=== PATIENT | female | born 1975 | race Caucasian/White ===

== ENCOUNTER 2020-10-22 12:44 | Outpatient (REF) | payer OTHER, SELFPAY | END 2020-10-22 12:45 | disposition home or self-care (01) | LOC: HO.HMGCLDS 12:44 | PROVIDERS: PCP Internal Medicine; Visit Provider Internal Medicine | DX: Z20.828 Contact with and (suspected) exposure to other viral communicable diseases (principal) | CPT/HCPCS: C9803; U0003 ==

== ENCOUNTER 2021-02-20 08:47 | Outpatient (REF) | payer OTHER, SELFPAY ==
--- NOTE | ~2021-02-20 | XR_ITS ---
EXAMINATION: LUMBAR SPINE AND LEFT HIP X-RAY CLINICAL INFORMATION: Pain COMPARISON: None TECHNIQUE: 3 views of the lumbar spine and 2 views of the left hip FINDINGS: Lumbar spine: Bone alignment is normal. No fracture or dislocation is seen. There is degenerative disc disease at L5-S1. There is lower lumbar spine facet arthritis. Left hip: Bone alignment is normal. No fracture or dislocation is seen. The joint space is normal. Soft tissues are normal. XR/XR lumbar spine 2-3V IMPRESSION: Lumbar spine: Degenerative disc disease at L5-S1 and lower lumbar spine facet arthritis. Left hip: Unremarkable exam.
--- NOTE | ~2021-02-20 | XR_ITS ---
EXAMINATION: LUMBAR SPINE AND LEFT HIP X-RAY CLINICAL INFORMATION: Pain COMPARISON: None TECHNIQUE: 3 views of the lumbar spine and 2 views of the left hip FINDINGS: Lumbar spine: Bone alignment is normal. No fracture or dislocation is seen. There is degenerative disc disease at L5-S1. There is lower lumbar spine facet arthritis. Left hip: Bone alignment is normal. No fracture or dislocation is seen. The joint space is normal. Soft tissues are normal. XR/XR hip LT w PEL1V IMPRESSION: Lumbar spine: Degenerative disc disease at L5-S1 and lower lumbar spine facet arthritis. Left hip: Unremarkable exam.
== END 2021-02-20 08:48 | disposition home or self-care (01) ==
LOC: HO.HMGCX 08:47
PROVIDERS: PCP Internal Medicine; Visit Provider Nurse Practitioner Family
DX: M54.5 Low back pain (principal); M25.552 Pain in left hip; Z91.81 History of falling; Z98.890 Other specified postprocedural states
CPT/HCPCS: 72100; 73502

== ENCOUNTER 2021-07-21 15:00 | Outpatient (REF) | payer OTHER, SELFPAY ==
[2021-07-21 17:01] LABS: Blood Urea Nitrogen 11 mg/dL (9-16); Estimated Glomerular Filt Rate > 60
== END 2021-07-21 15:01 | disposition home or self-care (01) ==
LOC: HO.HMGCLDS 15:00
PROVIDERS: PCP Internal Medicine; Visit Provider Internal Medicine
DX: M54.16 Radiculopathy, lumbar region (principal); Z98.890 Other specified postprocedural states
CPT/HCPCS: 36415; 82565; 84520

== ENCOUNTER 2021-10-27 11:26 | Emergency (ER) | payer OTHER, SELFPAY ==
--- NOTE | ~2021-10-27 | CT_ITS ---
EXAMINATION: CT ABDOMEN AND PELVIS WITHOUT CONTRAST CLINICAL INFORMATION: Left-sided flank pain COMPARISON: None TECHNIQUE: Multidetector volumetric imaging was performed from the superior aspect of the liver through the pubic symphysis. Sagittal and coronal reformatted images were obtained on the technologist's workstation. This CT examination was performed using dose optimization techniques as appropriate, variously including the following: *Automated exposure control *Adjustment of mA and/or kV according to patient size (this includes techniques or standardized protocols for targeted exams where dose is matched to indication/reason for exam; i.e. extremities or head) *Use of iterative reconstruction technique DLP: 763 mGy-cm FINDINGS: LUNG BASES: The lung bases are clear. There is focal 4 mm posterior pleural thickening right lung base. LIVER, GALLBLADDER, AND BILIARY TREE: The liver is normal in size, shape, and attenuation. No focal hepatic lesion or biliary ductal dilatation is present. The gallbladder is unremarkable with no evidence of radiopaque gallstones, gallbladder wall thickening, or obvious pericholecystic inflammatory changes. PANCREAS: Unremarkable. SPLEEN: Unremarkable. ADRENAL GLANDS: Unremarkable. KIDNEYS AND URETERS: The kidneys are normal in size, shape, and attenuation. No perinephric stranding. There is a 2 mm radiopaque calculi left proximal ureter with mild hydronephrosis. No additional renal calculi seen. BLADDER: Unremarkable. GASTROINTESTINAL TRACT: There is scattered stool and gas seen in the colon without distention. The small bowel loops are normal caliber. Appendix is normal caliber. Stomach is nondistended. ABDOMINAL WALL: There is small umbilical hernia containing fat. LYMPH NODES: Normal. VASCULAR: Unremarkable. PELVIC VISCERA: The uterus is anteverted and appears unremarkable. No free fluid. OSSEOUS STRUCTURES: There are degenerative disc changes with vacuum disc phenomena and ventral and posterior spondylosis. No lytic or sclerotic process seen. CT/CT abdomen pelvis wo con IMPRESSION: Tumor radiopaque calculi left proximal ureter with mild hydronephrosis. Small umbilical hernia containing fat. Fleischner guidelines were followed.
[2021-10-27 11:34] VITALS: BP 183/85; PULSE 86; RESP 18; TEMP 36.3; O2SAT 98; BMI 30.7
[2021-10-27 11:51] LABS: MANUAL DIFF FLAG NO
[2021-10-27 11:54] LABS: Basophils Percent Auto 0.1 % (0-2); Eosinophils Absolute Auto 0.1 X10*3/uL (0.0-0.4); Eosinophils Percent Auto 1.2 % (0-4); Hematocrit 44.1 % (37.0-47.0); Hemoglobin 14.2 g/dl (12.0-16.0); Imm Gran Abs Auto 0.06 X10*3/uL (0.00-0.03); Imm Gran Pct Auto 0.6 % (0.0-0.4); Lymphocytes Absolute Auto 1.5 X10*3/uL (1.2-4.9); Lymphocytes Percent Auto 14.5 % (20-40); Mean Corpuscular HGB Conc 32.2 g/dl (31.0-35.0); Mean Corpuscular Hemoglobin 30.3 pg (27.0-33.0); Mean Platelet Volume 10.2 fL (9.4-12.3); Monocytes Absolute Auto 0.7 X10*3/uL (0.1-1.2); Monocytes Percent Auto 6.5 % (2-11); Neutrophils Absolute Auto 8.2 x10*3/uL (2.0-8.3); Neutrophils Percent Auto 77.1 % (45-73); Platelet Count 284 X10*3/uL (160-400); Red Blood Count 4.69 X10*6/uL (4.20-5.50); Red Cell Distribution Width 13.2 % (11.0-16.0); White Blood Count 10.6 X10*3/uL (4.8-10.8)
[2021-10-27 12:10] LABS: Appearance Urine HAZY; Color Urine YELLOW; Glucose Urine UA NEG (NEG); Leukocyte Esterase Urine NEG (NEG); Nitrite Urine NEG (NEG); PH 5.5 (5.0-8.0); Specific Gravity - Urine >= 1.030 (1.005-1.025); UACC Culture Trigger NO; Urine Blood 3+ (NEG); Urine Ketones NEG (NEG); Urine Protein 1+ MG/DL (NEG-TRACE)
[2021-10-27 12:11] LABS: UPreg QC Valid YES; Urine Pregnancy NEGATIVE (NEGATIVE)
[2021-10-27 12:14] LABS: Alanine Aminotransferase 9 U/L (0-31); Alkaline Phosphatase 71 U/L (39-117); Anion Gap 10 (12-20); Aspartate Amino Transferase 11 U/L (5-31); Bilirubin Total 0.4 mg/dL (0.0-1.0); Blood Urea Nitrogen 13 mg/dL (9-16); Calcium 9.6 mg/dL (8.4-10.2); Carbon Dioxide 26 mmol/L (22-29); Chloride 108 mmol/L (96-108); Creatinine Clr Calc Pharmacy 108.3; Estimated Glomerular Filt Rate > 60; Glucose Random 107 mg/dL (60-115); Lipase 20 U/L (8-78); Potassium 4.1 mmol/L (3.3-5.1); Sodium 140 mmol/L (135-145); Total Protein 6.7 g/dL (6.5-8.0)
[2021-10-27 12:23] LABS: Bacteria Urine 2+ /LPF; Calcium Oxalate Crystals Urine TRACE /LPF; Squamous Epithelial Cell Urine 2+ /LPF; WBC Urine 0-2 /HPF (0-4)
--- NOTE | 2021-10-27 13:03 | ED.FEMALEGU ---
HPI - Female Genitourinary General Chief complaint: Urogenital-Female Stated complaint: Kidney stones Time Seen by Provider: 10/27/21 13:01 Source: patient Mode of arrival: ambulatory Limitations: no limitations History of Present Illness HPI Narrative: 46-year-old female with history kidney stones, low back pain with radiculopathy s/p back surgery in the past presents to the ER with worsening left sided flank pain that started yesterday. She reports it began as a dull ache but today increased to unbearable 9/10 sharp pains in her left flank. She states it feels very similar to her prior kidney stone attacks. She denies every requiring intervention and has been able to pass them at home. She has had no fevers or dysuria. She has been urinating less today. She has nausea and vomited twice this morning. No noted blood in her urine. MD elicited complaint: flank pain Pertinent past history: other (kidney stones ) Onset (ago): day(s) (1) Location of symptoms: low back and flank Severity: severe Female Urogenital Radiation: LLQ Severity scale (1-10): 9 Quality of pain: sharp Consistency: constant Vaginal discharge: none Vaginal bleeding: none Urinary symptoms: Difficulty Urinating Exacerbating factors: movement Relieving factors: none Associated symptoms: nausea and vomiting Treatment prior to arrival: NSAIDs Patient : No Related Data Previous Rx's Medication Instructions Recorded lidocaine 5 % topical patch 1 patch TOPICAL DAILY #15 ea 02/20/21 ibuprofen 800 mg tablet 800 mg PO BID PRN #60 tab 08/18/21 hydrocodone 5 mg-acetaminophen 325 1 tab PO Q8H PRN #5 tab 10/27/21 mg tablet ibuprofen 600 mg tablet 600 mg PO Q8H PRN #20 tab 10/27/21 prednisone 20 mg tablet 40 mg PO DAILY #10 tab 10/27/21 tamsulosin 0.4 mg capsule (Flomax) 0.4 mg PO DAILY #7 cap 10/27/21 Allergies Allergy/AdvReac Type Severity Reaction Status Date / Time penicillin V Allergy Unknown hives Verified 07/21/21 16:29 Penicillins [PENICILLINS] Allergy Unknown RASH,SWELLI Verified 07/21/21 16:29 NG Review of Systems Review of Systems: Constitutional: No Fever, No Chills ENT/Mouth: No sore throat, No Rhinorrhea, No Swallowing Difficulty Cardiovascular: No Chest Pain, No SOB, No Orthopnea, No Edema Respiratory: No Cough, No Sputum, No Wheezing, No dyspnea Gastrointestinal: + Nausea, + Vomiting, No Diarrhea, + abdominal Pain, No Hematochezia, No Melena Genitourinary: No Dysuria, No Urinary Frequency, No Hematuria, +Decreased UOP Musculoskeletal: + joint pain, No Myalgias Skin: No Skin Lesions, No rash Neuro: No Weakness, No Numbness, No Dizziness, No Headache Psych: + Anxiety/Panic, No Depression Heme/Lymph: No Bruising, No Lymphadenopathy Endocrine: No Polyuria, No Polydipsia [facility] Past Medical History Medical History Lumbar back pain with radiculopathy affecting lower extremity Surgical History History of lumbar discectomy Family History Family History Maternal Grandmother Breast cancer Social History Social History (Updated 07/21/21 @ 16:42 by Kristina Thomas MD) Housing: House Alcohol intake: never Patient Tobacco Use Status: Current everyday Tobacco user Cigarettes Per Day: 3 Use of substances other than those prescribed or required for medical reasons: No Advance Directives: No Advance Directives Information Provided: Yes service: No Current occupational status: employed Physical Exam Vital Signs: Vital Signs: Last Vital Signs Temp 97.4 F 10/27/21 11:34 Pulse 68 10/27/21 14:37 Resp 18 10/27/21 14:37 BP 178/81 H 10/27/21 14:37 Pulse Ox 100 10/27/21 14:37 BMI result Body Mass Index 30.7 Appearance: Alert. Oriented X3. No acute distress. Eyes: Pupils equal, round and reactive to light. ENT: Pharynx normal. Neck: Normal inspection. Neck supple. CVS: Normal heart rate and rhythm. Pulses normal. Respiratory: No respiratory distress. Breath sounds normal. Abdomen: Soft and nontender. +BS x4. +left sided CVA tenderness Skin: Skin warm and dry. Normal skin color. Normal skin turgor. No rashes. Extremities: No lower extremity edema. Neuro: Oriented X 3. No motor deficit. No sensory deficit. Course Course Course Narrative: 46-year-old female with a history of known kidney stones presents to the ER with left-sided flank pain that started yesterday, increased today. She has blood in her urine. Her she states the pain is about a 9/10. Will get CT scan for further evaluation. Will medicate with Toradol and IV fluids for now. Urinalysis does not show any signs of infection. Reevaluation(s) Reevaluation #1: CT scan is showing a 2 mm proximal left ureteral stone with mild hydronephrosis. Will give dose of IV Decadron and Flomax now. Will give additional pain control for return of pain to a 7/10. She appears comfortable. No vomiting in the ER. Reevaluation #2: Pain is improving she is asking to be discharged home. She agrees to follow-up with urology for further evaluation. Will discharge with steroids, Flomax, pain control and have her follow-up with Urology for further evaluation. [facility] - Female Genitourinary Lab Data Result diagrams: 10/27/21 11:48 10/27/21 11:48 Labs: Lab Results 10/27/21 10/27/21 10/27/21 Range/Units 11:48 11:48 12:02 WBC 10.6 (4.8-10.8) X10*3/uL RBC 4.69 (4.20-5.50) X10*6/uL Hgb 14.2 (12.0-16.0) g/dl Hct 44.1 (37.0-47.0) % MCV 94.0 (80.0-98.0) fL MCH 30.3 (27.0-33.0) pg MCHC 32.2 (31.0-35.0) g/dl RDW 13.2 (11.0-16.0) % Plt Count 284 (160-400) X10*3/uL MPV 10.2 (9.4-12.3) fL Immature Gran % (Auto) 0.6 H (0.0-0.4) % Neut % (Auto) 77.1 H (45-73) % Lymph % (Auto) 14.5 L (20-40) % Fergus % (Auto) 6.5 (2-11) % Eos % (Auto) 1.2 (0-4) % Baso % (Auto) 0.1 (0-2) % Lymph # (Auto) 1.5 (1.2-4.9) X10*3/uL Fergus # (Auto) 0.7 (0.1-1.2) X10*3/uL Eos # (Auto) 0.1 (0.0-0.4) X10*3/uL Baso # (Auto) 0.0 (0.0-0.2) X10*3/uL Abs Immat Gran (auto) 0.06 H (0.00-0.03) X10*3/uL Absolute Neuts (auto) 8.2 (2.0-8.3) x10*3/uL Absolute Nucleated RBC 0.000 (0.0-0.012) X10*3/uL Nucleated RBC % (auto) 0.0 (0.0-0.2) /100WBC Sodium 140 (135-145) mmol/L Potassium 4.1 (3.3-5.1) mmol/L Chloride 108 (96-108) mmol/L Carbon Dioxide 26 (22-29) mmol/L Anion Gap 10 L (12-20) BUN 13 (9-16) mg/dL Creatinine 0.71 (0.5-1.4) mg/dL Estim Creat Clear Calc 108.3 Estimated GFR > 60 Random Glucose 107 (60-115) mg/dL Calcium 9.6 (8.4-10.2) mg/dL Total Bilirubin 0.4 (0.0-1.0) mg/dL AST 11 (5-31) U/L ALT 9 (0-31) U/L Alkaline Phosphatase 71 (39-117) U/L Total Protein 6.7 (6.5-8.0) g/dL Albumin 4.0 (3.5-5.0) g/dL Lipase 20 (8-78) U/L Urine Color YELLOW Urine Appearance HAZY Urine pH 5.5 (5.0-8.0) Ur Specific Thorndike >= 1.030 H (1.005-1.025) Urine Protein 1+ H (NEG-TRACE) MG/DL Urine Glucose (UA) NEG (NEG) MG/DL Urine Ketones NEG (NEG) MG/DL Urine Blood 3+ H (NEG) Urine Nitrite NEG (NEG) Ur Leukocyte Esterase NEG (NEG) Urine RBC 76-150 H (0) /HPF Urine WBC 0-2 (0-4) /HPF Ur Squamous Epith Cells 2+ /LPF Calcium Oxalate Crystal TRACE /LPF Urine Bacteria 2+ /LPF Urine Test (NEGATIVE) 10/27/21 Range/Units 12:02 WBC (4.8-10.8) X10*3/uL RBC (4.20-5.50) X10*6/uL Hgb (12.0-16.0) g/dl Hct (37.0-47.0) % MCV (80.0-98.0) fL MCH (27.0-33.0) pg MCHC (31.0-35.0) g/dl RDW (11.0-16.0) % Plt Count (160-400) X10*3/uL MPV (9.4-12.3) fL Immature Gran % (Auto) (0.0-0.4) % Neut % (Auto) (45-73) % Lymph % (Auto) (20-40) % Fergus % (Auto) (2-11) % Eos % (Auto) (0-4) % Baso % (Auto) (0-2) % Lymph # (Auto) (1.2-4.9) X10*3/uL Fergus # (Auto) (0.1-1.2) X10*3/uL Eos # (Auto) (0.0-0.4) X10*3/uL Baso # (Auto) (0.0-0.2) X10*3/uL Abs Immat Gran (auto) (0.00-0.03) X10*3/uL Absolute Neuts (auto) (2.0-8.3) x10*3/uL Absolute Nucleated RBC (0.0-0.012) X10*3/uL Nucleated RBC % (auto) (0.0-0.2) /100WBC Sodium (135-145) mmol/L Potassium (3.3-5.1) mmol/L Chloride (96-108) mmol/L Carbon Dioxide (22-29) mmol/L Anion Gap (12-20) BUN (9-16) mg/dL Creatinine (0.5-1.4) mg/dL Estim Creat Clear Calc Estimated GFR Random Glucose (60-115) mg/dL Calcium (8.4-10.2) mg/dL Total Bilirubin (0.0-1.0) mg/dL AST (5-31) U/L ALT (0-31) U/L Alkaline Phosphatase (39-117) U/L Total Protein (6.5-8.0) g/dL Albumin (3.5-5.0) g/dL Lipase (8-78) U/L Urine Color Urine Appearance Urine pH (5.0-8.0) Ur Specific Thorndike (1.005-1.025) Urine Protein (NEG-TRACE) MG/DL Urine Glucose (UA) (NEG) MG/DL Urine Ketones (NEG) MG/DL Urine Blood (NEG) Urine Nitrite (NEG) Ur Leukocyte Esterase (NEG) Urine RBC (0) /HPF Urine WBC (0-4) /HPF Ur Squamous Epith Cells /LPF Calcium Oxalate Crystal /LPF Urine Bacteria /LPF Urine Test NEGATIVE (NEGATIVE) Discharge Plan Discharge Clinical Impression: Hydronephrosis with ureteral calculus Patient Disposition: Home, Self-Care Instructions: Hydronephrosis (ED), Ureteral Stones (ED) Additional Instructions: CT scan showed a small 2 mm stone your proximal left ureter with some mild kidney swelling. Recommend taking all the prescribed medications as directed. Drink plenty of water and stay hydrated. Recommend following up with Urology for further evaluation management. If you develop new or worsening symptoms call 911 or come back to the ER for further evaluation. Prescriptions: New prednisone 20 mg tablet 40 mg PO DAILY Qty: 10 RF: 0 tamsulosin [Flomax] 0.4 mg capsule 0.4 mg PO DAILY Qty: 7 RF: 0 ibuprofen 600 mg tablet 600 mg PO Q8H PRN (Reason: pain) Qty: 20 RF: 0 hydrocodone-acetaminophen 5-325 mg tablet 1 tab PO Q8H PRN (Reason: pain) Qty: 5 RF: 0 No Action ibuprofen 800 mg tablet 800 mg PO BID PRN (Reason: pain) Qty: 60 RF: 0 lidocaine 5 % adhesive patch,medicated 1 patch topical DAILY Qty: 15 RF: 0 Referrals: Rashad Baarkat MD [Physician] - 2 days (Recurring kidney stones, left-sided ureteral stone with mild hydro.) Interventions: ED Discharge Assessment Last Done: 10/27/21 18:03 Discharge Date/Time: 10/27/21 18:08
[2021-10-27] MEDS: Ketorolac Tromethamine 30 MG/ML VIAL IVPUSH (14:32)
[2021-10-27] MEDS: ondansetron HCL 4 MG/2 ML VIAL IVPUSH (14:32)
[2021-10-27] MEDS: 0.9 % Sodium Chloride 1,000 ML 999 ML IVCONT (14:32)
[2021-10-27 14:37] VITALS: BP 178/81; PULSE 68; RESP 18; O2SAT 100
[2021-10-27] MEDS: dexAMETHasone sod phosphate 10 MG/ML VIAL IVPUSH (15:43)
[2021-10-27] MEDS: Tamsulosin HCL 0.4 MG CAPSULE PO (15:43)
[2021-10-27] MEDS: HYDROcodone Bit/Acetam 5/325 TABLET 1 TAB PO (17:20)
== END 2021-10-27 18:08 | disposition home or self-care (01) ==
PROVIDERS: Emergency Provider Emergency Medicine Emergency Medical Services; PCP Internal Medicine
DX: N13.2 Hydronephrosis with renal and ureteral calculous obstruction (principal); R10.9 Unspecified abdominal pain; Z79.899 Other long term (current) drug therapy
CPT/HCPCS: 36415; 74176; 80053; 81001; 81025; 83690; 85025; 96361; 96374; 96375; 99285; J1100; J1885; J2405

== ENCOUNTER → 2021-11-02 08:36 | Outpatient (BNVA) | payer OTHER, SELFPAY | PROVIDERS: PCP Internal Medicine ==

== ENCOUNTER 2021-11-11 15:26 | Outpatient (REF) | payer OTHER, SELFPAY ==
--- NOTE | ~2021-11-11 | US_ITS ---
EXAMINATION: US RETROPERITONEAL LIMITED (RENAL ONLY) CLINICAL INFORMATION: Calculus of kidney. COMPARISON: CT abdomen and pelvis 10/27/2021. TECHNIQUE: Real-time imaging of the kidneys. FINDINGS: RIGHT KIDNEY: 9.4 x 4.5 x 6.5 cm (SAG x AP x TRV). The kidney is normal in size, contour, and echogenicity. Renal cortical thickness is normal. No calculi or focal parenchymal lesions. No hydronephrosis. LEFT KIDNEY: 10.6 x 5.2 x 4.8 cm (SAG x AP x TRV). The kidney is normal in size, contour, and echogenicity. Renal cortical thickness is normal. No calculi or focal parenchymal lesions. No hydronephrosis. US/US renal BI IMPRESSION: Normal renal ultrasound. The previously identified left hydronephrosis on 10/27/2021 CT scan is no longer seen.
== END 2021-11-11 15:27 | disposition home or self-care (01) ==
LOC: HO.HMGCX 15:26
DX: N20.0 Calculus of kidney (principal)
CPT/HCPCS: 76775

== ENCOUNTER → 2021-11-23 15:30 | Outpatient (BNVA) | payer OTHER, SELFPAY | PROVIDERS: PCP Internal Medicine ==

== ENCOUNTER 2022-03-11 15:53 | Outpatient (REF) | payer OTHER, SELFPAY ==
--- NOTE | ~2022-03-11 | US_ITS ---
EXAMINATION: US RETROPERITONEAL LIMITED (RENAL ONLY) CLINICAL INFORMATION: Calculus of kidney. COMPARISON: Renal ultrasound 11/11/2021. CT abdomen and pelvis 10/27/2021. TECHNIQUE: Real-time imaging of the kidneys. FINDINGS: RIGHT KIDNEY: 11.0 x 4.0 x 5.4 cm (SAG x AP x TRV). The kidney is normal in size, contour, and echogenicity. Renal cortical thickness is normal. No calculi or focal parenchymal lesions. No hydronephrosis. LEFT KIDNEY: 11.1 x 5.2 x 4.9 cm (SAG x AP x TRV). The kidney is normal in size, contour, and echogenicity. Renal cortical thickness is normal. No calculi or focal parenchymal lesions. No hydronephrosis. US/US renal BI IMPRESSION: Unremarkable renal ultrasound.
== END 2022-03-11 15:54 | disposition home or self-care (01) ==
LOC: HO.US 15:53
DX: N20.0 Calculus of kidney (principal)
CPT/HCPCS: 76775

== ENCOUNTER → 2022-03-16 08:28 | Outpatient (BNVA) | payer OTHER, SELFPAY | PROVIDERS: PCP Internal Medicine | DX: Z13.89 Encounter for screening for other disorder (principal) ==

== ENCOUNTER 2022-05-29 08:07 | Outpatient (REF) | payer OTHER, SELFPAY ==
--- NOTE | ~2022-05-29 | XR_ITS ---
EXAMINATION: XR CHEST CLINICAL INFORMATION: J06.9 - Acute upper respiratory infection, unspecified COMPARISON: Chest radiographs 08/11/2020, 09/10/2019 TECHNIQUE: 2 views of the chest were obtained. FINDINGS: The lungs are clear. No airspace consolidation or groundglass opacity or effusion. The heart is normal in size. The vascularity is normal. The costophrenic sulci are clear. The hilar and mediastinal contours and bony structures are unremarkable. XR/XR chest 2V IMPRESSION: Unremarkable examination.
== END 2022-05-29 08:08 | disposition home or self-care (01) ==
LOC: HO.XRAY 08:07
PROVIDERS: PCP Internal Medicine; Visit Provider Internal Medicine
DX: J06.9 Acute upper respiratory infection, unspecified (principal)
CPT/HCPCS: 71046

== ENCOUNTER 2023-02-25 15:20 | Outpatient (REF) | payer OTHER, SELFPAY ==
--- NOTE | ~2023-02-25 | US_ITS ---
EXAMINATION: US RETROPERITONEAL LIMITED (RENAL ONLY) CLINICAL INFORMATION: Calculus of kidney. COMPARISON: Renal ultrasound 03/11/2022 and 11/11/2021. CT abdomen and pelvis 10/27/2021. TECHNIQUE: Real-time imaging of the kidneys. FINDINGS: RIGHT KIDNEY: 10.1 x 4.3 x 5.7 cm (SAG x AP x TRV). The kidney is normal in size, contour, and echogenicity. Renal cortical thickness is normal. No calculi or focal parenchymal lesions. No hydronephrosis. LEFT KIDNEY: 11.3 x 5.7 x 4.4 cm (SAG x AP x TRV). The kidney is normal in size, contour, and echogenicity. Renal cortical thickness is normal. No calculi or focal parenchymal lesions. No hydronephrosis. US/US renal BI IMPRESSION: Unremarkable renal ultrasound.
== END 2023-02-25 15:21 | disposition home or self-care (01) ==
LOC: HO.HMGCX 15:20
DX: N20.0 Calculus of kidney (principal)
CPT/HCPCS: 76775

== ENCOUNTER 2023-03-01 14:43 | Outpatient (REF) | payer OTHER, SELFPAY ==
--- NOTE | ~2023-03-01 | XR_ITS ---
EXAMINATION: XR SHOULDER, RIGHT CLINICAL INFORMATION: Reason for Exam M25.511 - Pain in right shoulder COMPARISON: None TECHNIQUE: Four views of the shoulder. FINDINGS: No acute fracture or dislocation. Moderate degenerative changes of the shoulder and over the acromioclavicular joint with loss of joint space and degenerative spurring of the glenohumeral joint. Soft tissues are unremarkable. XR/XR shoulder RT min 2V IMPRESSION: * Moderate degenerative changes of the shoulder.
== END 2023-03-01 14:44 | disposition home or self-care (01) ==
LOC: HO.HMGCX 14:43
PROVIDERS: PCP Internal Medicine; Visit Provider Internal Medicine
DX: M25.511 Pain in right shoulder (principal)
CPT/HCPCS: 73030

== ENCOUNTER 2024-01-19 13:33 | Outpatient (REF) | payer OTHER, SELFPAY ==
[2024-01-20 03:19] LABS: CT PCR NOT DETECTED (Not Detect.); NG PCR NOT DETECTED (Not Detect.)
[2024-01-20 16:13] LABS: BV Int Neg Control Negative (Negative); BV Int Pos Control Positive (Positive)
[2024-01-26 07:39] LABS: HPV mRNA E6/E7 rflx Not Detected (Not Detected)
== END 2024-01-19 13:34 | disposition home or self-care (01) ==
LOC: HO.LAB 13:33
PROVIDERS: PCP Internal Medicine; Visit Provider Advanced Practice Midwife
DX: Z01.419 Encounter for gynecological examination (general) (routine) without abnormal findings (principal); Z11.51 Encounter for screening for human papillomavirus (HPV); Z20.2 Contact with and (suspected) exposure to infections with a predominantly sexual mode of transmission; N95.1 Menopausal and female climacteric states
CPT/HCPCS: 0353U; 87480; 87510; 87624; 87660; 88142

== ENCOUNTER 2024-01-19 13:33 | Outpatient (AMB) | payer OTHER, SELFPAY ==
[2024-01-19 13:39] VITALS: BP 138/78; BMI 29.2
--- NOTE | 2024-01-19 13:39 | MHC.OFFVIS ---
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 Information Interpreted: clinical only Bilingual Counter Sales Retail: Bilingual [employer] Present Allergies penicillin V Allergy (Unknown, Verified 01/19/24 13:40) hives Penicillins [PENICILLINS] Allergy (Unknown, Verified 01/19/24 13:40) RASH,SWELLING Medication List - Last Reconciled 01/19/24 by Cherry Parker CNM No Known Home Meds Is last menstrual period known: No Do you need a note to return to daycare/school/sports/work: No PFSH Medical History (Updated 01/19/24 @ 14:21 by Cherry Parker CNM) Primary hypertension Urinary urgency Renal calculi Irritable bowel syndrome with both constipation and diarrhea Back problem Vitamin D deficiency Lumbar back pain with radiculopathy affecting lower extremity Surgical History (Updated 01/19/24 @ 14:15 by Cherry Parker CNM) History of endometrial ablation History of lumbar discectomy Family History Maternal Grandmother Breast cancer Social History Housing: House Alcohol intake: never Patient Tobacco Use Status: Current everyday Tobacco user Cigarettes Per Day: 3 e-Cigarette/Vaping Use: Never Used service: No Current occupational status: employed Cognitive needs: No Hearing needs: No Vision needs: No Female Reproductive History Menstrual Age of Menarche: 14 Duration of menses: 3-5 days control method: none Total pregnancies: 2 Full term: 2 History of abnormal pap smear: No (previous pap unsure date) Physical Exam Vital Signs: Last Vital Signs BP 138/78 01/19/24 13:39 BMI result Body Mass Index 29.2 Const General: healthy appearing, comfortable, no acute distress, well developed and alert Nutritional Appearance: average body habitus Orientation/consciousness: patient oriented x3 Limitations: no limitations HEENT Head: Yes normocephalic Neck Neck: Yes normal visual inspection Chest Chest palpation & inspection: normal inspection of the chest Breast/axilla inspection: normal inspection of the breasts and normal inspection of the axillae Breast/axilla palpation: normal palpation of the breasts and normal palpation of the axillae Resp Effort & Inspection: normal respiratory effort GI Inspection: Yes normal to inspection, No Abdominal wall edema and No distended Palpation (GI): Soft to palpation and nontender Other: Normal vaginal exam. Vagina pink and moist cervix is nulliparous cervix is completely tightly closed and barely would admit tip of Cytobrush. Patient has never delivered vaginally and endometrial ablation was done surgically under anesthesia. Uterus is small anteverted mobile nontender adnexa nontender. Good Tone with Kegel General: Yes bladder normal to palpation External Female Exam: normal external appearance and normal appearance of the urethra Speculum Exam - Vagina: normal appearance of the vagina, normal palpation and normal vaginal discharge Speculum Exam - Cervix: normal appearance of the cervix, normal palpation and nontender Bimanual exam- vagina & uterus: normal bimanual exam, normal palpation, uterine size normal, bladder normal to palpation, consistency normal, normal palpation, uterine mobility normal, uterine shape normal, No Cervical tenderness present, non-tender and no cervical motion tenderness Bimanual Exam- Adnexa, other: normal adnexae, no masses, normal and No adnexal tenderness Neuro General: patient oriented x3 Assessment & Plan Assessment & Plan (1) History of endometrial ablation: Comment: Patient unsure with Dr. Tony possibly 2019. No menses since it might of been before. Code(s): Z98.890 - Other specified postprocedural states (2) Cervical cancer screening: Code(s): Z12.4 - Encounter for screening for malignant neoplasm of cervix (3) Breast cancer screening: Code(s): Z12.39 - Encounter for other screening for malignant neoplasm of breast (4) Well woman exam with routine gynecological exam: Code(s): Z01.419 - Encounter for gynecological examination (general) (routine) without abnormal findings (5) Perimenopausal symptoms: Code(s): N95.1 - Menopausal and female climacteric states Plan -----Discussed in this visit the following: healthy balanced diet, regular and consistent exercise, getting recommended health screens, doing the best she can for her particular health concerns, kegel exercises, pap smear screening and followup recommendations, mammography screening and SBE, normal changes in cycles in her life stage--- .-reviewed amee menopausal symptoms to expect including vaginal dryness hot flashes etc. here Reviewed her history of the endometrial ablation. Couple of months back 1 time when she wiped she thought she saw spotting but it was not enough to transfer to underwear or pad or anything. She used to pay attention to menstrual changes such as breast symptoms but that was the only 1 that she would get that would correlate with along with her menses and she has not been paying attention to that in the years since. I asked her to correlate if it happens again if it happens to be going along with breast symptom changes that would a line with menses as even a history endometrial ablation does not guarantee complete absence of any light spotting at the time of menses. She has not really experiencing hot flashes much just a couple of times at night is all. So any testing for FSH levels probably not appropriate at this time. I am ordering her mammogram as she has not seen her primary in a while and will be seeing her coming up but she would like to schedule her mammogram. Testing for gonorrhea chlamydia trichomoniasis Gardnerella and Ryann was done along with the Pap smear. She has not interested in any other STI testing. And she has not currently sexually active now. RTC 1 year discussed that if she did have any other bleeding that was non cyclic in nature she probably would need evaluation and it would probably need to be done and explored under anesthesia so she would need to make an appointment with Dr. Tompkins for evaluation. Patient and this provider eventually remembered we have met before years ago at other visits. Orders: Orders CT NG by PCR Today Z01.419 - Encounter for gynecological examination (general) (routine) without abnormal findings Bacterial Vaginosis Panel Today Z20.2 - Contact with and (suspected) exposure to infections with a predominantly sexual mode of transmission MM tomosynthesis screening BI Today Z01.419 - Encounter for gynecological examination (general) (routine) without abnormal findings, Z12.31 - Encounter for screening mammogram for malignant neoplasm of breast, Z12.39 - Encounter for other screening for malignant neoplasm of breast, Z12.4 - Encounter for screening for malignant neoplasm of cervix, Z98.890 - Other specified postprocedural states Pap Smear Today Z01.419 - Encounter for gynecological examination (general) (routine) without abnormal findings Coding Level of Care Code New Pt Prev Care 40-64y([id number]) Diagnoses History of endometrial ablation Z98.890 Cervical cancer screening Z12.4 Breast cancer screening Z12.39 Well woman exam with routine gynecological exam Z01.419 Perimenopausal symptoms N95.1
== END 2024-01-19 14:40 | disposition home or self-care (01) ==
LOC: HO.HWSM 13:38
PROVIDERS: PCP Internal Medicine; Visit Provider Advanced Practice Midwife
DX: Z01.419 Encounter for gynecological examination (general) (routine) without abnormal findings (principal); N95.1 Menopausal and female climacteric states
CPT/HCPCS: 99386

== ENCOUNTER 2024-02-03 14:33 | Outpatient (AMB) | payer OTHER, SELFPAY ==
--- NOTE | 2024-02-03 14:41 | A.OFFVIS_ITS ---
Intake Vital Signs 02/03/24 14:47 Height 5 ft 6 in Weight 177 lb BMI 28.6 BP 143/75 H Blood Pressure Location Lt brachial Position Sitting Pulse 72 Intake Visit Reasons: Colonoscopy Screening Intake Note: Patient new consult for 1st pre Colonoscopy screening. Patient cc: abdominal cramping with soft stool after eating. Denies any other GI issues. 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 female with past medical hi story of IBS, status post cholecystectomy about 20 years ago is here today for pre colonoscopy screening.? Patient was sent to us by her PCP.? This is her first colonoscopy screening.? Patient reports postprandial loose stools. Patient states that she tries to eat once a day during the week, more often on the weekend. Patient reports that this has been happening ever since she had her gallbladder removed. Denies any personal or family history of gastrointestinal disease, colon polyps, or cancer.? Denies history of difficulty with sedation or anesthesia in the past.? Negative for history of sleep apnea.? Denies any history of cardiac, renal, pulmonary, or hepatic disease.?? No history of infectious? diseases like hepatitis A, B, C, HIV or tuberculosis.? Patient is not on any anticoagulation therapy. [facility] Medical History (Updated 01/19/24 @ 14:21 by Cherry Parker CNM) Primary hypertension Urinary urgency Renal calculi Irritable bowel syndrome with both constipation and diarrhea Back problem Vitamin D deficiency Lumbar back pain with radiculopathy affecting lower extremity Surgical History History of endometrial ablation History of lumbar discectomy Family History Maternal Grandmother Breast cancer Social History Housing: House Alcohol intake: never Patient Tobacco Use Status: Current everyday Tobacco user Cigarettes Per Day: 3 e-Cigarette/Vaping Use: Never Used service: No Current occupational status: employed Cognitive needs: No Hearing needs: No Vision needs: No Female Reproductive History Menstrual Age of Menarche: 14 Review of Systems Const Denies weight gain and Denies weight loss ENT Reports no additional complaints, Denies dysphagia and Denies odynophagia Card Reports no additional complaints Resp Reports no additional complaints GI Denies abdominal pain, Denies belching, Denies melena, Denies bloating, Denies change in bowel habits, Denies dysphagia, Denies excessive flatus, Denies dyspepsia, Denies heartburn, Denies diarrhea, Reports loose stools (Postprandially), Denies nausea, Denies odynophagia and Denies vomiting Reports no additional complaints Musc Reports no additional complaints Neuro Reports no additional complaints Psych Reports no additional complaints Endo Reports no additional complaints Physical Exam Const General: healthy appearing, no acute distress and well developed Nutritional Appearance: well nourished Orientation/consciousness: patient oriented x3 Resp Effort & Inspection: normal respiratory effort, able to speak in complete sentences, no tracheal deviation and symmetric chest movement Auscultation: clear to auscultation bilaterally Cardio Rate: regular rate GI Inspection: Yes normal to inspection and No distended Palpation (GI): Soft to palpation, not firm, nontender and No hepatosplenomegaly present Auscultation: normal bowel sounds General: Yes no CVA tenderness Back/Spine/Pelvis Back: no CVA tenderness Skin General skin exam: elasticity normal, turgor normal and dry skin Neuro General: patient oriented x3 Psych Appearance: grossly normal Mental Status: mental status grossly normal Assessment & Plan Assessment & Plan (1) Screen for colon cancer: Code(s): Z12.11 - Encounter for screening for malignant neoplasm of colon (2) Postprandial diarrhea: Code(s): K52.9 - Noninfective gastroenteritis and colitis, unspecified (3) IBS (irritable bowel syndrome): Code(s): K58.9 - Irritable bowel syndrome without diarrhea Qualifiers: Irritable bowel syndrome type: with diarrhea Qualified Code(s): K58.0 - Irritable bowel syndrome with diarrhea Plan Patient denies any cardiac or respiratory symptoms.? Patient reports postprandial loose stools since she had her cholecystectomy. Will start her on cholestyramine. Patient will call our office if she will continue to have symptoms. Will rule out IBD. Patient was also encouraged to take fiber every day to help her bulk her stools. However stop fiber supplements 1 week before the procedure. Denies any issues with anesthesia in the past.? Denies any history of sleep apnea.? No history infectious diseases in the past or present.? Not on any anticoagulation therapy.? No family or personal history of colon cancer or polyps.? Patient denies melena, hematochezia, unintentional weight loss or ribbon like stools.? Discussed at length the pre-procedure,? prep, diet & medications as well as what to expect prior, during and after the procedure.?? Stressed the importance of good bowel prep. ?Recommended the use of Vaseline or Calmoseptine OTC & baby wipes with bowel movements to promote comfort.? ?Patient verbalizes understanding and agrees to plan of care.? She was given the opportunity to ask questions and all questions answered.? We will see her after the procedure.? Orders: Orders C Reactive Protein Today K58.9 - Irritable bowel syndrome without diarrhea Calprotectin, Fecal Today R15.9 - Full incontinence of feces Comprehensive Met. Panel Today K21.9 - Gastro-esophageal reflux disease without esophagitis Vitamin B12 and Folate Today R19.7 - Diarrhea, unspecified Complete Blood Count no Diff Today K21.9 - Gastro-esophageal reflux disease without esophagitis Vitamin D 25-OH (D2 and D3) Today E55.9 - Vitamin D deficiency, unspecified TSH reflex Free T4 Today K59.00 - Constipation, unspecified Medications: New Cholestyramine Light 4 gram (cholestyramine-aspartame) no meds 1 hr before/4-6 hr after dose take it with meals 3-4 times a day 4 grams PO QIDACHS 231 grams 2RF NS bisacodyl (Dulcolax (bisacodyl)) take 4 tabs at noon the day before your colonoscopy 20 mg (4 x 5 mg) PO ONCE 1 day 4 tabs 0RF Z12.11 - Encounter for screening for malignant neoplasm of colon polyethylene glycol 3350 (Miralax) As directed by gastroenterology department at [facility] 238 grams PO ONCE 238 grams 0RF Z12.11 - Encounter for screening for malignant neoplasm of colon Coding Level of Care Code New Pt Level 4 (98858) Diagnoses Screen for colon cancer Z12.11 Postprandial diarrhea K52.9 Irritable bowel syndrome with diarrhea K58.0 Irritable bowel syndrome type: with diarrhea Time Spent (min) 45 Comment 30 minutes spent with patient and additional 15 minutes spent reviewing her records
[2024-02-03 14:47] VITALS: BP 143/75; PULSE 72; BMI 28.6
== END 2024-02-03 15:27 | disposition home or self-care (01) ==
PROVIDERS: PCP Internal Medicine; Visit Provider Nurse Practitioner Family
DX: Z01.818 Encounter for other preprocedural examination (principal); Z12.11 Encounter for screening for malignant neoplasm of colon; K58.0 Irritable bowel syndrome with diarrhea; Z90.49 Acquired absence of other specified parts of digestive tract
CPT/HCPCS: 99204

== ENCOUNTER → 2024-02-03 14:33 | Outpatient (BNVA) | payer OTHER, SELFPAY | PROVIDERS: PCP Internal Medicine; Visit Provider Nurse Practitioner Family ==

== ENCOUNTER → 2024-02-13 15:30 | Outpatient (BNV) | payer OTHER, SELFPAY | PROVIDERS: PCP Internal Medicine; Visit Provider Radiology Diagnostic Radiology | DX: Z12.31 Encounter for screening mammogram for malignant neoplasm of breast (principal) | CPT/HCPCS: 77063; 77067 ==

== ENCOUNTER 2024-02-13 15:38 | Outpatient (REF) | payer OTHER, SELFPAY | END 2024-02-13 15:39 | disposition home or self-care (01) | LOC: HO.MAMMO 15:38 | PROVIDERS: PCP Internal Medicine; Visit Provider Advanced Practice Midwife | DX: Z12.31 Encounter for screening mammogram for malignant neoplasm of breast (principal) | CPT/HCPCS: 77063; 77067 ==

== ENCOUNTER 2024-02-27 09:58 | Day surgery (SDC) | payer OTHER, SELFPAY ==
[2024-02-23 11:07] VITALS: BMI 28.6
--- NOTE | 2024-02-23 13:20 | HO.ANESPROP2 ---
Documented by User: Gloria Hines NP 02/23/24 13:20 HPI - Anesthesia Eval Consult details Narrative: 48yo F for Colonoscopy PMFSH Active Problems Active Problems: All Active Problems (Updated 02/07/24 @ 18:02 by Cherry Parker CNM) Perimenopausal symptoms (Acute) History of endometrial ablation (Acute) Well woman exam with routine gynecological exam (Acute) Breast cancer screening (Acute) Cervical cancer screening (Acute) Primary hypertension (Acute) Upper respiratory tract infection (Acute) Left otitis media (Acute) Urinary urgency (Acute) Renal calculi (Acute) SI joint dislocation (Acute) Lumbar back pain (Acute) Hip pain (Acute) Fall (Acute) History of lumbar discectomy (Acute) Lumbar back pain with radiculopathy affecting lower extremity (Acute) Past Medical History Medical History Primary hypertension Urinary urgency Renal calculi Irritable bowel syndrome with both constipation and diarrhea Back problem Vitamin D deficiency Lumbar back pain with radiculopathy affecting lower extremity Family History Family History Maternal Grandmother Breast cancer Surgical History Surgical History History of tubal ligation History of endometrial ablation History of lumbar discectomy Social History Social History Housing: House Alcohol intake: never Patient Tobacco Use Status: Current everyday Tobacco user Cigarettes Per Day: 3 e-Cigarette/Vaping Use: Never Used Advance Directives: No Advance Directives Information Provided: Yes service: No Current occupational status: employed Cognitive needs: No Hearing needs: No Vision needs: No Meds Allergies Allergy/AdvReac Type Severity Reaction Status Date / Time Penicillins [PENICILLINS] Allergy Intermediate RASH,SWELLI Verified 02/23/24 11:01 NGMELIDA Exam Height,Weight and Vital Signs: Height 5 ft 6 in Weight 80.286 kg Assessment and Plan Assessment Anesthesia Assessment: Chart Reviewed Documented by User: Alia Chapa MD 02/27/24 11:00 PMFSH Past Medical History Medical History Primary hypertension Urinary urgency Renal calculi Irritable bowel syndrome with both constipation and diarrhea Back problem Vitamin D deficiency Lumbar back pain with radiculopathy affecting lower extremity Family History Family History Maternal Grandmother Breast cancer Surgical History Surgical History History of tubal ligation History of endometrial ablation History of lumbar discectomy History of Problems with Anesthesia: No Social History Social History Housing: House Alcohol intake: never Patient Tobacco Use Status: Current everyday Tobacco user Cigarettes Per Day: 3 e-Cigarette/Vaping Use: Never Used Advance Directives: No Advance Directives Information Provided: Yes service: No Current occupational status: employed Cognitive needs: No Hearing needs: No Vision needs: No Meds Allergies Allergy/AdvReac Type Severity Reaction Status Date / Time Penicillins [PENICILLINS] Allergy Intermediate RASH,SWELLI Verified 02/23/24 11:01 NG,HIVES Exam Airway Mallampati Class: II TM Dist: >3cm Neck ROM: Full Loose/Missing/Broken Teeth: No Heart: RRR Lungs: CTA Assessment and Plan Assessment Anesthesia Assessment: Anesthesia Plan Discussed Final Anesthetic Review History of Problems with Anesthesia: No NPO: Yes ASA Class: II Final Preanesthetic Review: Meds/Allgs Chart Reviewed, Consent Obtained/Reviewed and Anes Risks/Benef Reviewed Patient Risk: Low Procedure Risk: Low Anesthetic Plan Anesthetic Plan: MAC: and Regional Block Disposition: Standard PACU
--- NOTE | 2024-02-27 09:42 | MHC.SHP ---
Pre-Procedural Eval Section A - 24 Hr Update-Section A only Date of Service: 02/27/24 Section B - Complete if H&P > 30 days Chief Complaint: diarrhea Relevant Family History (Specify if Yes): No Relevant Social History: Tobacco Use Present Medications: see Short Stay Collaborative assessment Medical History: Significant History ( Primary hypertension Urinary urgency Renal calculi Irritable bowel syndrome with both constipation and diarrhea Back problem Vitamin D deficiency Lumbar back pain with radiculopathy affecting lower extremity) History of Previous Operations: Relevant previous surgery/procedure and date(s) (History of tubal ligation History of endometrial ablation History of lumbar discectomy) Allergies: Allergies Allergy/AdvReac Type Severity Reaction Status Date / Time Penicillins [PENICILLINS] Allergy Intermediate RASH,SWELLI Verified 02/23/24 11:01 MELIDA BLANCA Review of Systems Sugical H&P ROS: Negative: Constitution, Cardiovascular, Respiratory, Neurological, Psychiatric, Hem-Onc, Allergic/Immunologic, Gastrointestinal, Genitourinary, Musculoskeletal, Integumentary, Endocrine and Eyes/Ears/Nose/Throat Exam Surgical H&P Exam: Normal: HEENT, Normal: Heart, Normal: Lungs, Normal: Extremities, Normal: Abdomen, Normal: Skin and Normal: Neurological Plan Diagnosis/Plan: Unchanged I have reviewed the history and physical and performed a pertinent physical examination on my patient. No changes have occurred unless specified. Time Spent With Patient Time: Total time managing care of this patient today ____ minutes.
[2024-02-27 10:55] VITALS: BMI 29.5
[2024-02-27 11:02] VITALS: BP 152/86; PULSE 72; RESP 16; TEMP 37; O2SAT 97
[2024-02-27] MEDS: Lactated Ringers 1,000 ML 100 ML IVCONT (11:17)
--- NOTE | 2024-02-27 12:43 | P.OP_ITS ---
Operative Note Operative Note Date of Service: 02/27/24 Narrative: Operative Information Procedure Description: Colonoscopy Indication: diarrhea Anesthesia: MAC COLONOSCOPY Instrument: Olympus variable stiffness pediatric scope 190L Colonoscopy Monitoring: Vital signs and clinical assessment, continuous EKG monitoring, Pulse oximetry, Carbon Dioxide monitoring and blood pressure monitoring were done throughout the procedure. Colon withdrawal time was 10 minutes. Procedure: The patient was placed in the left lateral decubitis position and pre-procedure medications were administered. After a digital rectal examination of the ano-rectum, the video colonoscope was inserted into the rectum and advanced through the colon to the cecum/TI. The colonoscope was slowly withdrawn in a retrograde panoramic fashion and the colon mucosa was carefully examined including a retroflexed view of the rectum. Findings and interventions are described below. Procedure Difficulty: easy Findings: Terminal Ileum-normal, bx taken random colon bx taken to r/o microscopic colitis Cecum:normal Ascending Colon: x 1 sessile polyp 4-6 mm removed with cold forceps Transverse Colon -normal Descending Colon: x 1 sessile polyp 4-6 mm removed with cold forceps Sigmoid Colon: normal Rectum: Retroflexion with small internal hemorrhoids seen, grade I, x 1 sessile polyp 4-6 mm removed with cold forceps Anorectum - normal Intervention: cold forceps biopsy and polypectomy Colon preparation: Frederick Bowel Preparation Scale Right colon; 2 Transverse colon: 2 Left colon; 2 (0 = Unprepared colon segment with mucosa not seen due to solid stool that cannot be cleared. 1 = Portion of mucosa of the colon segment seen, but other areas of the colon segment not well seen due to staining, residual stool and/or opaque liquid. 2 = Minor amount of residual staining, small fragments of stool and/or opaque liquid, but mucosa of colon segment seen well. 3 = Entire mucosa of colon segment seen well with no residual staining, small fragments of stool or opaque liquid) Impression and Post Procedure Diagnosis: colon polyps internal hemorrhoids Plan: High fiber diet leaflet Avoid straining at stool, epsom salts and sitz bath, anusol supps or cream Repeat Colonoscopy in 5 years if adenomatous, 10 yrs if non adenomatous polyps or earlier if clinically indicated Above findings were reviewed with the patient and relevant handouts were provided if indicated.
[2024-02-27 12:45] VITALS: BP 165/83; PULSE 77; RESP 18; TEMP 36.7; O2SAT 99
[2024-02-27 13:00] VITALS: PULSE 74; RESP 16; TEMP 36.7; O2SAT 99
== END 2024-02-27 13:40 | disposition home or self-care (01) ==
PROVIDERS: PCP Internal Medicine; Visit Provider Internal Medicine Gastroenterology
PROC: 0DJD8ZZ Inspection of Lower Intestinal Tract, Via Natural or Artificial Opening Endoscopic (ICD-10-PCS; CPT 45378; principal; 2024-02-27 13:30)
DX: Z12.11 Encounter for screening for malignant neoplasm of colon (principal); K58.0 Irritable bowel syndrome with diarrhea; D12.2 Benign neoplasm of ascending colon; K63.5 Polyp of colon; K62.1 Rectal polyp; K64.0 First degree hemorrhoids; Z88.0 Allergy status to penicillin; I10 Essential (primary) hypertension; E55.9 Vitamin D deficiency, unspecified; N20.0 Calculus of kidney; Z90.49 Acquired absence of other specified parts of digestive tract; F17.210 Nicotine dependence, cigarettes, uncomplicated; Z79.899 Other long term (current) drug therapy
CPT/HCPCS: 45380; 88305; J2704

== ENCOUNTER → 2024-02-27 09:58 | Outpatient (BNV) | payer OTHER, SELFPAY | PROVIDERS: PCP Internal Medicine; Visit Provider Internal Medicine Gastroenterology | DX: Z12.11 Encounter for screening for malignant neoplasm of colon (principal); K63.5 Polyp of colon; K64.8 Other hemorrhoids | CPT/HCPCS: 45380; 45385 ==

== ENCOUNTER 2024-03-12 15:49 | Outpatient (AMB) | payer OTHER, SELFPAY ==
[2024-03-12 15:52] VITALS: BP 149/72; PULSE 88; BMI 29.4
--- NOTE | 2024-03-12 15:52 | A.OFFVIS_ITS ---
Vital Signs 03/12/24 15:52 Height 5 ft 5 in Weight 176 lb 12.972 oz BMI 29.4 BP 149/72 H Blood Pressure Location Lt brachial Position Sitting Pulse 88 Pulse Source Pulse Oximeter Intake Visit Reasons: s/p colon Intake Note: Pt presents to the office today for a s/p colo. Pt states she is feeling well and denies any concerns at this time. Allergies Penicillins [PENICILLINS] Allergy (Intermediate, Verified 03/12/24 15:53) RASH,SWELLING,HIVES HPI HPI s/p colon: Details: LAST VISIT Screen for colon cancer Postprandial diarrhea IBS (irritable bowel syndrome) Plan Patient denies any cardiac or respiratory symptoms.? Patient reports postprandial loose stools since she had her cholecystectomy. Will start her on cholestyramine. Patient will call our office if she will continue to have symptoms. Will rule out IBD. Patient was also encouraged to take fiber every day to help her bulk her stools. However stop fiber supplements 1 week before the procedure. Denies any issues with anesthesia in the past.? Denies any history of sleep apnea.? No history infectious diseases in the past or present.? Not on any anticoagulation therapy.? No family or personal history of colon cancer or polyps.? Patient denies melena, hematochezia, unintentional weight loss or ribbon like stools.? Discussed at length the pre-procedure,? prep, diet & medications as well as what to expect prior, during and after the procedure.?? Stressed the importance of good bowel prep. ?Recommended the use of Vaseline or Calmoseptine OTC & baby wipes with bowel movements to promote comfort.? ?Patient verbalizes understanding and agrees to plan of care.? She was given the opportunity to ask questions and all questions answered.? We will see her after the procedure.? Orders Orders C Reactive Protein Today K58.9 Calprotectin, Fecal Today R15.9 Comprehensive Met. Panel Today K21.9 Vitamin B12 and Folate Today R19.7 Complete Blood Count no Diff Today K21.9 Vitamin D 25-OH (D2 and D3) Today E55.9 TSH reflex Free T4 Today K59.00 Medications New Cholestyramine Light 4 gram (cholestyramine-aspartame) no meds 1 hr before/4-6 hr after dose take it with meals 3-4 times a day 4 grams PO QIDACHS 231 grams 2RF NS bisacodyl (Dulcolax (bisacodyl)) take 4 tabs at noon the day before your colonoscopy 20 mg (4 x 5 mg) PO ONCE 1 day 4 tabs 0RF Z12.11 polyethylene glycol 3350 (Miralax) As directed by gastroenterology department at [facility] 238 grams PO ONCE 238 grams 0RF Z12.11 COLONOSCOPY Findings: Terminal Ileum-normal, bx taken random colon bx taken to r/o microscopic colitis Cecum:normal Ascending Colon: x 1 sessile polyp 4-6 mm removed with cold forceps Transverse Colon -normal Descending Colon: x 1 sessile polyp 4-6 mm removed with cold forceps Sigmoid Colon: normal Rectum: Retroflexion with small internal hemorrhoids seen, grade I, x 1 sessile polyp 4-6 mm removed with cold forceps Anorectum - normal Intervention: cold forceps biopsy and polypectomy Colon preparation: Benjamin Bowel Preparation Scale Right colon; 2 Transverse colon: 2 Left colon; 2 (0 = Unprepared colon segment with mucosa not seen due to solid stool that cannot be cleared. 1 = Portion of mucosa of the colon segment seen, but other areas of the colon segment not well seen due to staining, residual stool and/or opaque liquid. 2 = Minor amount of residual staining, small fragments of stool and/or opaque liquid, but mucosa of colon segment seen well. 3 = Entire mucosa of colon segment seen well with no residual staining, small fragments of stool or opaque liquid) Impression and Post Procedure Diagnosis: colon polyps internal hemorrhoids Plan: High fiber diet leaflet Avoid straining at stool, epsom salts and sitz bath, anusol supps or cream Repeat Colonoscopy in 5 years if adenomatous, 10 yrs if non adenomatous polyps or earlier if clinically indicated PATHOLOGY RESULTS: Diagnosis A. Terminal ileum, biopsy: Terminal ileal mucosa within normal limits. B. Colon, random, biopsy: Colonic mucosa within normal limits. C. Colon, ascending, polypectomy: Tubular adenoma; negative for high-grade dysplasia or carcinoma. D. Colon, descending, polypectomy: Hyperplastic mucosal polyp. E. Rectum, polypectomy: Hyperplastic mucosal polyp TODAY'S VISIT Patient is here today for follow-up and to discuss colonoscopy results. Patient denies any ill effects from the prep, anesthesia or procedure itself. Patient reports that she is feeling little better after the procedure. Patient feels like when she cleaned herself out she is experiencing less diarrhea. She changed some of her food that she has been eating and no longer has diarrhea postprandially. Patient still gets cramps after eating certain food that makes her go to the bathroom with bowel movement. However patient describes her stools as soft no more diarrhea. Awaiting insurance approval to check for calprotectin. Patient has not done her blood work yet. Colonoscopy results and biopsy results discussed with patient. One tubular adenoma found in ascending colon without high-grade dysplasia or carcinoma. Two other polyps were hyperplastic mucosal polyps. Patient denies melena, hematochezia, unintentional weight loss or ribbon like stools. Patient denies dyspepsia, dysphagia or odynophagia. [facility] Medical History (Updated 03/12/24 @ 20:38 by Ailyn Noble [facility]) Tubular adenoma of colon Primary hypertension Urinary urgency Renal calculi Irritable bowel syndrome with both constipation and diarrhea Back problem Vitamin D deficiency Lumbar back pain with radiculopathy affecting lower extremity Surgical History History of tubal ligation History of endometrial ablation History of lumbar discectomy Family History Maternal Grandmother Breast cancer Social History Housing: House Alcohol intake: never Patient Tobacco Use Status: Current everyday Tobacco user Tobacco use type: Cigarette Cigarettes Per Day: 5 e-Cigarette/Vaping Use: Never Used service: No Current occupational status: employed Cognitive needs: No Hearing needs: No Vision needs: No Female Reproductive History Menstrual Age of Menarche: 14 Review of Systems Const Denies weight gain and Denies weight loss ENT Reports no additional complaints, Denies dysphagia and Denies odynophagia Card Reports no additional complaints Resp Reports no additional complaints GI Denies abdominal pain, Denies belching, Denies melena, Denies bloating, Denies change in bowel habits, Denies dysphagia, Denies excessive flatus, Denies dyspepsia, Denies heartburn, Denies diarrhea, Reports loose stools (Occasional), Denies nausea, Denies odynophagia and Denies vomiting Reports no additional complaints Musc Reports no additional complaints Neuro Reports no additional complaints Psych Reports no additional complaints Endo Reports no additional complaints Physical Exam Vital Signs: Last Vital Signs Pulse 88 03/12/24 15:52 BP 149/72 H 03/12/24 15:52 BMI result Body Mass Index 29.4 Const General: healthy appearing, no acute distress and well developed Nutritional Appearance: well nourished Orientation/consciousness: patient oriented x3 Resp Effort & Inspection: normal respiratory effort, able to speak in complete sentences, no tracheal deviation and symmetric chest movement Auscultation: clear to auscultation bilaterally Cardio Rate: regular rate GI Inspection: Yes normal to inspection and No distended Palpation (GI): Soft to palpation, not firm, nontender and No hepatosplenomegaly present Auscultation: normal bowel sounds General: Yes no CVA tenderness Back/Spine/Pelvis Back: no CVA tenderness Skin General skin exam: elasticity normal, turgor normal and dry skin Neuro General: patient oriented x3 Psych Appearance: grossly normal Mental Status: mental status grossly normal Assessment & Plan Assessment & Plan (1) Tubular adenoma of colon: Code(s): D12.6 - Benign neoplasm of colon, unspecified Category: Medical (2) Postprandial diarrhea: Code(s): K52.9 - Noninfective gastroenteritis and colitis, unspecified (3) IBS (irritable bowel syndrome): Code(s): K58.9 - Irritable bowel syndrome without diarrhea Qualifiers: Irritable bowel syndrome type: with diarrhea Qualified Code(s): K58.0 - Irritable bowel syndrome with diarrhea Plan One Tubular adenoma found without high-grade dysplasia or carcinoma. Recommendation was made for 5 year screening, sooner if clinically necessary. Continue avoiding dietary triggers. Continue avoiding lactose. Patient can try cholestyramine with meals if she can still use to have loose stools postprandially. However patient reports that she has not started taking it yet because her pharmacy did not have the medication in stock. Patient will try to call her insurance company to see what is taking so long for PA for stool calprotectin. Patient still continues with postprandial abdominal cramping after meals. Several biopsies taken from her colon did not reveal any inflammatory changes. Continue to follow FODMAP diet. Food recommended as well as food to avoid discussed with patient. She will return in 1 year, sooner on as needed basis. Patient is agreeable to this plan and verbalizes understanding of instructions. She was given the opportunity to ask questions and all questions answered. Thank you for allowing me to participate in her care
== END 2024-03-12 16:16 | disposition home or self-care (01) ==
LOC: HO.HGI 15:49
PROVIDERS: PCP Internal Medicine; Visit Provider Nurse Practitioner Family
DX: D12.6 Benign neoplasm of colon, unspecified (principal); K58.0 Irritable bowel syndrome with diarrhea
CPT/HCPCS: 99213

== ENCOUNTER → 2024-03-12 15:49 | Outpatient (BNVA) | payer OTHER, SELFPAY | PROVIDERS: PCP Internal Medicine; Visit Provider Nurse Practitioner Family ==

== ENCOUNTER 2024-03-14 10:47 | Outpatient (AMB) | payer OTHER, SELFPAY ==
[2024-03-14 11:25] VITALS: BP 122/80; PULSE 76; O2SAT 98; BMI 29.3
--- NOTE | 2024-03-14 11:25 | MHC.PC.OV ---
Vital Signs 03/14/24 11:25 03/14/24 11:47 Height 5 ft 5 in Weight 176 lb BMI 29.3 BP 122/80 130/80 Blood Pressure Location Lt brachial Lt brachial Position Sitting Sitting Pulse 76 Pulse Source Pulse Oximeter Pulse Oximetry (%) 98 Oxygen Delivery Method Room Air Intake Visit Reasons: f/u HTN Intake Note: Pt is here today f/u HTN Allergies Penicillins [PENICILLINS] Allergy (Intermediate, Verified 03/15/24 00:20) RASH,SWELLING,HIVES Medication List - Last Reconciled 03/15/24 by Kristina Thomas MD amlodipine 2.5 mg PO DAILY Cholestyramine Light 4 gram (cholestyramine-aspartame) 4 grams PO QIDACHS NS nicotine 1 patch transdermal DAILY Tobacco use date assessed: 03/14/24 Dental Screening Dental Screen Date: 03/14/24 Did you have a dental visit in the last 12 months?: No Was dental information given to patient?: Patient has dentist HPI f/u HTN HPI Details 48-year-old lady here today for follow-up on her blood pressure. It is within normal limits here the clinic, but patient states that she has been running high when she checks at home with her own blood pressure cuff and it has also been running high in her other doctors visits, usually running up to 160/90. Has been having intermittent episodes of headache as well.. She has been compliant with healthy eating habits, and has been limiting to 1 big meal a day, and does not eat beyond 18:00. She is a cigarette smoker, has been able to cut down to just half a pack a day, but would like to help quitting smoking with the us of patches. Has tried Chantix in the past which gave her nightmares when she took it. [facility] Medical History (Updated 03/14/24 @ 11:53 by Kristina Thomas MD) Cigarette smoker motivated to quit Cigarette smoker one half pack a day or less Tubular adenoma of colon Primary hypertension Urinary urgency Renal calculi Irritable bowel syndrome with both constipation and diarrhea Back problem Vitamin D deficiency Lumbar back pain with radiculopathy affecting lower extremity Surgical History History of tubal ligation History of endometrial ablation History of lumbar discectomy Family History Maternal Grandmother Breast cancer Social History Housing: House Alcohol intake: never Patient Tobacco Use Status: Current everyday Tobacco user Tobacco use type: Cigarette Cigarettes Per Day: 5 e-Cigarette/Vaping Use: Never Used service: No Current occupational status: employed Cognitive needs: No Hearing needs: No Vision needs: No Female Reproductive History Menstrual Age of Menarche: 14 Questionnaire PHQ-9 Over the last 2 weeks, how often have you been bothered by any of the following problems? 1. Little interest or pleasure in doing things: not at all 2. Feeling down, depressed, or hopeless: not at all 3. Trouble falling or staying asleep, or sleeping too much: not at all 4. Feeling tired or having little energy: not at all 5. Poor appetite or overeating: not at all 6. Feeling bad about yourself - or that you are a failure or have let yourself or your family down: not at all 7. Trouble concentrating on things, such as reading the newspaper or watching television: not at all 8. Moving or speaking so slowly that other people could have noticed. Or the opposite - being so fidgety or restless that you have been moving around a lot more than usual: not at all 9. Thoughts that you would be better off or of hurting yourself in some way: not at all Total score: 0 Depression Screening Interpretation: Negative Depression Screening Done: Yes 56224 - PHQ-9 Billing: Yes Source: Developed by Drs. Valerio Bhandari, Perri Nunez, Ronak Pagan and colleagues, with an educational noelle from [employer]. Thrive Questionnaire Date Thrive assessed: 03/14/24 I am a: Patient What is your living situation today?: I have a steady place to live Within the past 12 months, did the food you bought not last and you didn't have the money to get more?: Never true Within the past 12 months, did you worry whether your food would run out before you got money to buy more?: Never true Do you have trouble paying for medicines?: No Do you have trouble getting transportation to medical appointments?: No Do you have trouble paying your heating and electricity bill?: No Do you have trouble taking care of your child, family member or friend?: No Do you have trouble with day-to-day activities such as bathing, preparing meals, shopping, managing finances, etc.?: No Are you currently unemployed and looking for a job?: No Are you interested in more education?: No THRIVE Score: 0 AUDIT C Alcohol Use Questionnaire (AUDIT-C) 1. How often do you have a drink containing alcohol?: Never Total Score: 0 SNOW-7 AMB Questionnaire SNOW-7 Date SNOW - 7 assessed: 03/14/24 Feeling nervous, anxious, or on edge: 0 = Not at all Not being able to stop or control worryin = Not at all Worrying too much about different things: 0 = Not at all Trouble relaxin = Not at all Being so restless that it is hard to sit still: 0 = Not at all Becoming easily annoyed or irritable: 0 = Not at all Feeling afraid as if something awful might happen: 0 = Not at all Total SNOW-7 score (0-4 normal; 5-9 mild; 10-14 moderate; 15-21 severe): 0 Source: Developed by Drs. Valerio Bhandari, Perri Nunez, Ronak Pagan and colleagues, with an educational noelle from [employer]. SNOW-7 Assessment Billing SNOW-7 Assessment Tool: SNOW-7 Assessment 23598 Review of Systems Const All systems reviewed & are unremarkable except as noted in HPI and below ENT Reports no additional complaints Card Denies chest pain, Denies chest pain with activity, Denies rapid heart rate, Denies irregular heart rhythm, Denies lightheadedness and Denies dyspnea Resp Denies cough and Denies dyspnea GI Reports no additional complaints Neuro Reports no additional complaints Psych Reports no additional complaints Physical exam (Primary Care) Vital Signs: Last Vital Signs Pulse 76 03/14/24 11:25 BP 130/80 03/14/24 11:47 Pulse Ox 98 03/14/24 11:25 Oxygen Delivery Method Room Air 03/14/24 11:25 BMI result Body Mass Index 29.3 Tobacco/Smoking Status: Tobacco use Status Tobacco use date assessed 03/14/24 03/14/24 11:29 Patient Tobacco Use Status Current everyday Tobacco 03/14/24 11:29 Tobacco use type Cigarette 03/14/24 11:29 e-Cigarette/Vaping Use Never Used 03/14/24 11:29 PHQ-9: PHQ-9 Score PHQ-9: Total score 0 03/14/24 12:04 Depression Screening Interpretation: Negative Thrive Assessment: Date of Thrive Assessment Date Thrive assessed 03/01/23 03/14/24 11:29 Const Other: Alert oriented x3, no acute distress noted Eyes General: appearance normal, both eyes and all related structures Neck Neck: Yes full ROM, Yes no lymphadenopathy and Yes supple Resp Effort & Inspection: normal respiratory effort and able to speak in complete sentences Auscultation: clear to auscultation bilaterally Cardio Other: S1-S2 present regular rate and rhythm Neuro General: gait normal, tone normal and no focal motor deficits Extrem General: Yes full ROM, Yes no joint enlargement, Yes no clubbing, cyanosis or edema and Yes normal gait Psych Appearance: grossly normal and well kempt Mental Status: mental status grossly normal Speech and movement: Normal speech and movement present Affect: normal affect Assessment and Plan Assessment & Plan (1) Primary hypertension: Code(s): I10 - Essential (primary) hypertension Plan: Started on amlodipine 2.5 mg taken once a day in a.m.. Discussed possible side effects of medication , which includes swelling in both lower extremities. Reinforced importance of following a low-salt diet and getting regular exercise. Schedule office visit for follow-up in a month (2) Cigarette smoker one half pack a day or less: Code(s): F17.210 - Nicotine dependence, cigarettes, uncomplicated Plan: Patient motivated to quit, Discussed options for smoking cessation with medications. Pt wishes to try Nicotine patch. Prescription sent for 14 mg patch, advised to apply the nicotine patch as directed on cigarette quit day. Rotate sites of application on upper chest, outer arm and upper back, advised not to forget to remove at bedtime for sleeping. Discussed common side effects of the patch, and strongly advised not to smoke while using the patch. . Follow up in office 4 weeks .Discussed side effects including but not limited to local erythema, rash, diarrhea, and insomnia., , (3) Cigarette smoker motivated to quit: Code(s): F17.210 - Nicotine dependence, cigarettes, uncomplicated Medications: New nicotine 1 patch transdermal DAILY 28 ea 1RF F17.210 - Nicotine dependence, cigarettes, uncomplicated Refilled amlodipine 2.5 mg PO DAILY 30 tabs 1RF Coding Level of Care Code Est Pt Level 4 (68820) Diagnoses Primary hypertension I10 Cigarette smoker one half pack a day or less F17.210 Cigarette smoker motivated to quit F17.210 Additional Codes SNOW-7 Assessment Billing - SNOW-7 Assessment Tool: SNOW-7 Assessment 34543 ([id number])
[2024-03-14 11:47] VITALS: BP 130/80
== END 2024-03-14 12:01 | disposition home or self-care (01) ==
PROVIDERS: PCP Internal Medicine; Visit Provider Internal Medicine
DX: I10 Essential (primary) hypertension (principal); F17.210 Nicotine dependence, cigarettes, uncomplicated
CPT/HCPCS: 99214

== ENCOUNTER 2025-02-09 08:09 | Outpatient (REF) | payer OTHER, SELFPAY ==
[2025-02-09 12:01] LABS: MANUAL DIFF FLAG NO
[2025-02-09 12:08] LABS: Basophils Percent Auto 0.2 % (0-2); Eosinophils Absolute Auto 0.1 X10*3/uL (0.0-0.4); Eosinophils Percent Auto 1.3 % (0-4); Hematocrit 44.2 % (37.0-47.0); Hemoglobin 14.4 g/dl (12.0-16.0); Imm Gran Abs Auto 0.05 X10*3/uL (0.00-0.03); Imm Gran Pct Auto 0.6 % (0.0-0.4); Lymphocytes Absolute Auto 1.9 X10*3/uL (1.2-4.9); Lymphocytes Percent Auto 22.4 % (20-40); Mean Corpuscular HGB Conc 32.6 g/dl (31.0-35.0); Mean Corpuscular Hemoglobin 30.8 pg (27.0-33.0); Mean Corpuscular Volume 94.6 fL (80.0-98.0); Mean Platelet Volume 10.4 fL (9.4-12.3); Monocytes Absolute Auto 0.8 X10*3/uL (0.1-1.2); Monocytes Percent Auto 9.4 % (2-11); Neutrophils Absolute Auto 5.7 x10*3/uL (2.0-8.3); Neutrophils Percent Auto 66.1 % (45-73); Platelet Count 279 X10*3/uL (160-400); Red Blood Count 4.67 X10*6/uL (4.20-5.50); Red Cell Distribution Width 13.6 % (11.0-16.0); White Blood Count 8.6 X10*3/uL (4.8-10.8)
[2025-02-09 12:36] LABS: Alanine Aminotransferase 12 U/L (0-31); Albumin Level 3.8 g/dL (3.5-5.0); Anion Gap 8 (12-20); Aspartate Amino Transferase 14 U/L (5-31); Bilirubin Total 0.4 mg/dL (0.0-1.0); Blood Urea Nitrogen 18 mg/dL (9-16); Calcium 9.4 mg/dL (8.4-10.2); Carbon Dioxide 26 mmol/L (22-29); Chloride 109 mmol/L (96-108); Cholesterol 217 mg/dL (<200); Estimated Glomerular Filt Rate > 60; Glucose Fasting 97 mg/dL (60-99); HDL Cholesterol 52 mg/dL (>40); LDL Cholesterol Calculated 143 mg/dL (<100); Potassium 4.4 mmol/L (3.3-5.1); Sodium 139 mmol/L (135-145); Total Protein 6.9 g/dL (6.5-8.0); Triglycerides 113 mg/dL (<150)
[2025-02-09 12:50] LABS: Vitamin D 25-OH Total 28.1 ng/mL (>30)
[2025-02-09 12:52] LABS: Alkaline Phosphatase 66 U/L (39-117)
== END 2025-02-09 08:10 | disposition home or self-care (01) ==
LOC: HO.HMGCLDS 08:09
PROVIDERS: PCP Internal Medicine; Visit Provider Internal Medicine
DX: D12.6 Benign neoplasm of colon, unspecified (principal); N95.1 Menopausal and female climacteric states; I10 Essential (primary) hypertension
CPT/HCPCS: 36415; 80053; 80061; 82306; 85025

== ENCOUNTER 2025-02-11 08:40 | Outpatient (AMB) | payer OTHER, SELFPAY ==
[2025-02-11 09:27] VITALS: BP 142/90; PULSE 80; RESP 16; TEMP 36.6; O2SAT 99; BMI 31.6
--- NOTE | 2025-02-11 09:27 | MHC.PC.OV ---
Vital Signs 02/11/25 09:27 Height 5 ft 5 in Weight 190 lb BMI 31.6 BP 142/90 H Blood Pressure Location Lt brachial Position Sitting Respiration 16 Pulse 80 Pulse Source Pulse Oximeter Temp 97.9 F Temp Source Oral Pulse Oximetry (%) 99 Oxygen Delivery Method Room Air Intake Visit Reasons: Annual PE Intake Note: Pt is here today for her PE: Last mammogram 02/13/24, papsmear 01/20/24, colonoscopy 02/27/24 Allergies Penicillins [PENICILLINS] Allergy (Intermediate, Verified 02/18/25 01:51) RASH,SWELLING,HIVES Medication List - Last Reconciled 02/18/25 by Kristina Thomas MD losartan-hydrochlorothiazide 50-12.5 mg 1 tab PO DAILY Tobacco use date assessed: 02/11/25 Dental Screening Dental Screen Date: 02/11/25 Did you have a dental visit in the last 12 months?: No Did you have a dental problem in the last 6 months where you did not have access to dental care?: No Was dental information given to patient?: Patient has dentist HPI Annual PE HPI Details 49-year-old lady with history of lumbar back pain with radiculopathy, followed by pain management, history of kidney stones, and adenomatous polyp of colon, here today for her physical exam. She is up-to-date with her screening mammogram and cervical cancer screening, done last year, ordered by [facility] with which she has another follow-up appointment scheduled. She is also up-to-date with her colonoscopy, done last year to be repeated again in 2028 due to presence of a tubular adenoma that was removed. She has been having intermittent episodes of headache, has been checking her blood pressure at home and it has always been been elevated. Any accompanying chest pain or shortness of breath, no palpitations , but has been having a sensation of head fullness and heaviness. [facility] Medical History (Updated 02/11/25 @ 10:07 by Kristina Thomas MD) History of adenomatous polyp of colon Cigarette smoker one half pack a day or less Tubular adenoma of colon Primary hypertension Urinary urgency Renal calculi Irritable bowel syndrome with both constipation and diarrhea Back problem Vitamin D deficiency Lumbar back pain with radiculopathy affecting lower extremity Surgical History History of tubal ligation History of endometrial ablation History of lumbar discectomy Family History Maternal Grandmother Breast cancer Social History Housing: House Alcohol intake: never Patient Tobacco Use Status: Current everyday Tobacco user Tobacco use type: Cigarette Cigarettes Per Day: 5 e-Cigarette/Vaping Use: Never Used service: No Current occupational status: employed Cognitive needs: No Hearing needs: No Vision needs: No Female Reproductive History Menstrual Age of Menarche: 14 Questionnaire PHQ-9 Over the last 2 weeks, how often have you been bothered by any of the following problems? 1. Little interest or pleasure in doing things: not at all 2. Feeling down, depressed, or hopeless: not at all 3. Trouble falling or staying asleep, or sleeping too much: several days 4. Feeling tired or having little energy: several days 5. Poor appetite or overeating: several days 6. Feeling bad about yourself - or that you are a failure or have let yourself or your family down: not at all 7. Trouble concentrating on things, such as reading the newspaper or watching television: not at all 8. Moving or speaking so slowly that other people could have noticed. Or the opposite - being so fidgety or restless that you have been moving around a lot more than usual: not at all 9. Thoughts that you would be better off or of hurting yourself in some way: not at all Total score: 3 Depression Screening Interpretation: Negative Depression Screening Done: Yes 95097 - PHQ-9 Billing: Yes Source: Developed by Drs. Valerio Bhandari, Perri Nunez, Ronak Pagan and colleagues, with an educational noelle from [employer]. Thrive Questionnaire Date Thrive assessed: 02/11/25 I am a: Patient What is your living situation today?: I have a steady place to live Within the past 12 months, did the food you bought not last and you didn't have the money to get more?: Sometimes True Within the past 12 months, did you worry whether your food would run out before you got money to buy more?: Sometimes True Do you have trouble paying for medicines?: No Do you have trouble getting transportation to medical appointments?: No Do you have trouble paying your heating and electricity bill?: Yes Do you have trouble taking care of your child, family member or friend?: No Do you have trouble with day-to-day activities such as bathing, preparing meals, shopping, managing finances, etc.?: No Are you currently unemployed and looking for a job?: No Are you interested in more education?: No Please select the resources that you would like help with: None Currently or been in a relationship where the following occur: No concerns reported THRIVE Score: 3 AUDIT C Alcohol Use Questionnaire (AUDIT-C) 1. How often do you have a drink containing alcohol?: Never 3. How often do you have six or more drinks on one occasion?: Never Total Score: 0 SNOW-7 AMB Questionnaire SNOW-7 Date SNOW - 7 assessed: 02/11/25 Feeling nervous, anxious, or on edge: 1 = Several days Not being able to stop or control worryin = Several days Worrying too much about different things: 1 = Several days Trouble relaxin = Several days Being so restless that it is hard to sit still: 1 = Several days Becoming easily annoyed or irritable: 1 = Several days Feeling afraid as if something awful might happen: 0 = Not at all Total SNOW-7 score (0-4 normal; 5-9 mild; 10-14 moderate; 15-21 severe): 6 Source: Developed by Drs. Valerio Bhandari, Perri Nunez, Ronak Pagan and colleagues, with an educational noelle from [employer]. SNOW-7 Assessment Billing SNOW-7 Assessment Tool: SNOW-7 Assessment 71973 Review of Systems Const All systems reviewed & are unremarkable except as noted in HPI and below Eyes Denies change in vision ENT Reports no additional complaints Card Denies chest pain, Denies chest pain with activity, Denies rapid heart rate, Denies irregular heart rhythm, Denies lightheadedness and Denies dyspnea Resp Denies cough and Denies dyspnea GI Reports no additional complaints Reports no additional complaints Musc Reports no additional complaints Skin/Breast Denies breast pain, Denies breast mass and Denies rash Neuro Reports no additional complaints Psych Reports no additional complaints Endo Reports no additional complaints Sylvain/Lymph Reports no additional complaints Aller/Immun Reports no additional complaints Physical exam (Primary Care) Vital Signs: Last Vital Signs Temp 97.9 F 02/11/25 09:27 Pulse 80 02/11/25 09:27 Resp 16 02/11/25 09:27 BP 142/90 H 02/11/25 09:27 Pulse Ox 99 02/11/25 09:27 Oxygen Delivery Method Room Air 02/11/25 09:27 BMI result Body Mass Index 31.6 Tobacco/Smoking Status: Tobacco use Status Tobacco use date assessed 02/11/25 02/11/25 09:32 Patient Tobacco Use Status Current everyday Tobacco 02/11/25 09:32 Tobacco use type Cigarette 02/11/25 09:32 e-Cigarette/Vaping Use Never Used 02/11/25 09:32 PHQ-9: PHQ-9 Score PHQ-9: Total score 3 02/11/25 09:43 Depression Screening Interpretation: Negative Thrive Assessment: Date of Thrive Assessment Date Thrive assessed 02/11/25 02/11/25 09:32 Currently or been in a relationship where the following occur: No concerns reported Const Other: Alert oriented x3, no acute distress noted Eyes General: appearance normal, both eyes and all related structures Neck Neck: Yes full ROM, Yes no lymphadenopathy and Yes supple Resp Effort & Inspection: normal respiratory effort and able to speak in complete sentences Auscultation: clear to auscultation bilaterally Cardio Other: S1-S2 present regular rate and rhythm Neuro General: gait normal, tone normal and no focal motor deficits Extrem General: Yes full ROM, Yes no joint enlargement, Yes no clubbing, cyanosis or edema and Yes normal gait Psych Appearance: grossly normal and well kempt Mental Status: mental status grossly normal Speech and movement: Normal speech and movement present Affect: normal affect Results Reviewed Results Reviewed: Name: Penny Laboy Age/Sex: 49/F : 1975 Unit#: [id number] Attend Dr: Kristina Thomas MD Re02/09/25 Status: DEP REF Location: [facility] Disch: SPEC : [id number] HEIDY: 02/09/25 STATUS: COMP REQ : [id number] RECD: 02/09/25-[address]: Kristina Thomas MD COMP: 02/09/25 ENTERED: 02/09/25 [facility] DR: ORDERED: CBC Auto Diff Test Result Flag Reference WBC 8.6 4.8-10.8 X10*3/uL RBC 4.67 4.20-5.50 X10*6/uL HGB 14.4 12.0-16.0 g/dl HCT 44.2 37.0-47.0 % MCV 94.6 80.0-98.0 fL MCH 30.8 27.0-33.0 pg MCHC 32.6 31.0-35.0 g/dl RDW 13.6 11.0-16.0 % PLT 279 160-400 X10*3/uL MPV 10.4 9.4-12.3 fL Neut Pct Auto 66.1 45-73 % ImGran Pct Auto 0.6 H 0.0-0.4 % Lymp Pct Auto 22.4 20-40 % Newberry Pct Auto 9.4 2-11 % Eos Pct Auto 1.3 0-4 % Baso Pct Auto 0.2 0-2 % NRBC Pct Auto 0.0 0.0-0.2 /100WBC ANC Neut Abs # 5.7 2.0-8.3 x10*3/uL ImGran Abs Auto 0.05 H 0.00-0.03 X10*3/uL Lymph Abs Auto 1.9 1.2-4.9 X10*3/uL Newberry Abs Auto 0.8 0.1-1.2 X10*3/uL Eos Abs Auto 0.1 0.0-0.4 X10*3/uL Baso Abs Auto 0.0 0.0-0.2 X10*3/uL NRBC Abs Auto 0.000 0.0-0.012 X10*3/uL Name: Penny Laboy Age/Sex: 49/F : 1975 Unit#: [id number] Attend Dr: Kristina Thomas MD Re02/09/25 Status: DEP REF Location: [facility] Disch: SPEC : [id number] HEIDY: 02/09/25 STATUS: COMP REQ : [id number] RECD: 02/09/[address]: Kristina Thomas MD COMP: 02/09/25 ENTERED: 02/09/25 [facility] DR: ORDERED: CMP Fast, Lipid Panel, Vitamin D 25-OH Test Result Flag Reference Sodium 139 135-145 mmol/L Potassium 4.4 3.3-5.1 mmol/L CL 109 H 96-108 mmol/L CO2 26 22-29 mmol/L Gap 8 L 12-20 BUN 18 H 9-16 mg/dL Creat 0.64 0.5-1.4 mg/dL eGFR > 60 Chronic Kidney Disease: Estimated GFR < 60 mL/min/1.73m2 Severe Kidney Disease: Estimated GFR < 15 mL/min/1.73m2 FBS 97 60-99 mg/dL CA 9.4 8.4-10.2 mg/dL Total Bili 0.4 0.0-1.0 mg/dL AST (GOT) 14 5-31 U/L ALT (GPT) 12 0-31 U/L Protein, Total 6.9 6.5-8.0 g/dL Alb 3.8 3.5-5.0 g/dL Triglyceride 113 <150 mg/dL Desirable Triglyceride: less than 150 mg/dL Borderline High Triglyceride 150-199 mg/dL High Triglyceride: 200-499 mg/dL Very High Triglyceride: greater than or equal to 5OO mg/dL Cholesterol 217 H <200 mg/dL Desirable Cholesterol: less than 200 mg/dL Borderline High Cholesterol: 200-239 mg/dL High Cholesterol: greater than 239 mg/dL LDL Calculated 143 H <100 mg/dL Desirable LDL: less than 100 mg/dL Near Optimal/Above Optimal LDL: 110-129 mg/dL Borderline High LDL: 130-159 mg/dL High LDL: 160-189 mg/dL Very High LDL: greater than or equal to 190 mg/dL HDL 52 >40 mg/dL Desirable HDL: greater than 40 mg/dL Note: This HDL assay may give artificially low results in patients with liver disease. Alk Phos 66 39-117 U/L Vitamin D 25-OH 28.1 L >30 ng/mL Health Based Reference Values* < 20 ng/mL Deficient 20-30 ng/mL Insufficient > 30 ng/mL Sufficient Coding Level of Care Code Est Pt Prev Care 40-64y(88717) Diagnoses Annual visit for general adult medical examination with abnormal findings Z00. Primary hypertension I10 Immunity status testing Z. History of adenomatous polyp of colon Z86.0101 Cigarette smoker one half pack a day or less F17.210 Lumbar back pain with radiculopathy affecting lower extremity M54.16 Additional Codes PHQ-9 - 63476 - PHQ-9 Billing: Yes ([id number]) SNOW-7 Assessment Billing - SNOW-7 Assessment Tool: SNOW-7 Assessment 48435 ([id number]) Assessment & Plan Assessment & Plan (1) Annual visit for general adult medical examination with abnormal findings: Code(s): Z00. - Encounter for general adult medical examination with abnormal findings Plan: Recent fasting labs discussed with patient which showed elevated LDL cholesterol and low vitamin-D level.. Recommended dental visit every 6 months and regular eye exams, at least every 2 years. Take adequate calcium in diet and vitamin-D 3 at 2000 IU per cap once a day, in addition to weight-bearing exercises to help maintain good muscle tone and weight control. Instructed to do self-breast exam, and continue with yearly mammogram. Up-to-date with her cervical cancer screening, goes to [facility].. Declined all recommended vaccines (2) Primary hypertension: Code(s): I10 - Essential (primary) hypertension Category: Medical Plan: Blood pressure not at goal of less than 130/80. Will start her on losartan-HCTZ 50-12.5 mg to take 1 tablet once a day in a.m... Reinforced importance of following a low sodium diet, getting regular exercise, and lowering stress levels. Basic metabolic panel to be done again in 3 weeks after starting losartan HCTZ (3) Immunity status testing: Code(s): Z01.84 - Encounter for antibody response examination Plan: Will check for varicella IgG antibody (4) History of adenomatous polyp of colon: Code(s): Z86.0101 - Personal history of adenomatous and serrated colon polyps Category: Medical Plan: Repeat colonoscopy [place] [address] Gallardo (5) Cigarette smoker one half pack a day or less: Code(s): F17.210 - Nicotine dependence, cigarettes, uncomplicated Category: Social Hx Plan: Patient strongly advised to stop smoking, as smoking damages blood vessels, degenerative of joints and spine, damage to lungs and heart., predisposes to developing certain cancers like lung, breast, bladder, colon. Recommended to try decreasing cigarette use by 1-2 cigarettes a day. Advised to monitor what triggers are for smoking so that this can be discussed on the next office visit. We can discuss different options to quit smoking when ready. (6) Lumbar back pain with radiculopathy affecting lower extremity: Comment: [facility] Code(s): M54.16 - Radiculopathy, lumbar region Category: Medical Plan: Followed by pain management Orders: Orders Varicella IgG Antibody 3 Weeks Z01.84 - Encounter for antibody response examination Basic Metabolic Panel Fasting 3 Weeks I10 - Essential (primary) hypertension Medications: New losartan-hydrochlorothiazide 50-12.5 mg 1 tab PO DAILY 30 tabs 1RF
== END 2025-02-11 10:13 | disposition home or self-care (01) ==
LOC: HO.HMCC 08:41
PROVIDERS: PCP Internal Medicine; Visit Provider Internal Medicine
DX: Z00.01 Encounter for general adult medical examination with abnormal findings (principal); I10 Essential (primary) hypertension; Z01.84 Encounter for antibody response examination; Z86.0101 Personal history of adenomatous and serrated colon polyps; F17.210 Nicotine dependence, cigarettes, uncomplicated; M54.16 Radiculopathy, lumbar region

== ENCOUNTER → 2025-02-11 08:40 | Outpatient (BNVA) | payer OTHER, SELFPAY | PROVIDERS: PCP Internal Medicine; Visit Provider Internal Medicine | DX: Z00.01 Encounter for general adult medical examination with abnormal findings (principal); I10 Essential (primary) hypertension; M54.16 Radiculopathy, lumbar region; F17.210 Nicotine dependence, cigarettes, uncomplicated; Z86.0101 Personal history of adenomatous and serrated colon polyps | CPT/HCPCS: 96127 ==

== ENCOUNTER 2025-03-11 13:20 | Outpatient (AMB) | payer OTHER, SELFPAY ==
[2025-03-11 13:29] VITALS: BP 112/70; PULSE 83; RESP 16; TEMP 36.8; O2SAT 97; BMI 31.4
--- NOTE | 2025-03-11 13:29 | MHC.PC.OV ---
Vital Signs 03/11/25 13:29 Height 5 ft 5 in Weight 189 lb BMI 31.4 BP 112/70 Blood Pressure Location Rt brachial Position Sitting Respiration 16 Pulse 83 Pulse Source Pulse Oximeter Temp 98.2 F Temp Source Oral Pulse Oximetry (%) 97 Intake Visit Reasons: 1m f/u Intake Note: Pt is her today for her f/u HTN Allergies Penicillins [PENICILLINS] Allergy (Intermediate, Verified 03/11/25 13:32) RASH,SWELLING,HIVES Medication List - Last Reconciled 03/11/25 by Kristina Thomas MD losartan-hydrochlorothiazide 50-12.5 mg 1 tab PO DAILY Tobacco use date assessed: 03/11/25 Dental Screening Dental Screen Date: 03/11/25 Did you have a dental visit in the last 12 months?: No Did you have a dental problem in the last 6 months where you did not have access to dental care?: No Was dental information given to patient?: Patient has dentist HPI 1m f/u HPI Details 49-year-old lady here today for follow-up on her hypertension. She was started on losartan HCTZ 50-12.5 mg a month ago, with improvement in blood pressure noted. Patient states that her headaches has also resolved and she feels more energy and all-in-all feels better since starting losartan HCTZ.. Noted to have low vitamin-D level at 28 ng/mL on last lab done. Not currently taking any supplements Requesting help to lose weight. Has been going to the gym to exercise regularly and has been compliant with healthy eating habits but unable to lose any weight.. She has tried weight watchers in the past , but was unsuccessful will weight loss. COUNT INCLUDES THE [facility] Medical History (Updated 03/11/25 @ 15:07 by rKistina Thomas MD) Obesity (BMI 30.0-34.9) History of adenomatous polyp of colon Cigarette smoker one half pack a day or less Tubular adenoma of colon Primary hypertension Urinary urgency Renal calculi Irritable bowel syndrome with both constipation and diarrhea Back problem Vitamin D deficiency Lumbar back pain with radiculopathy affecting lower extremity Surgical History History of tubal ligation History of endometrial ablation History of lumbar discectomy Family History Maternal Grandmother Breast cancer Social History Housing: House Alcohol intake: never Patient Tobacco Use Status: Current everyday Tobacco user Tobacco use type: Cigarette Cigarettes Per Day: 5 e-Cigarette/Vaping Use: Never Used service: No Current occupational status: employed Cognitive needs: No Hearing needs: No Vision needs: No Female Reproductive History Menstrual Age of Menarche: 14 Questionnaire PHQ-9 Over the last 2 weeks, how often have you been bothered by any of the following problems? Depression Screening Interpretation: Negative Depression Screening Done: Yes Source: Developed by Drs. Valerio Bhandari, Perri Nunez, Ronak Pagan and colleagues, with an educational noelle from [employer]. Thrive Questionnaire Date Thrive assessed: 02/06/25 I am a: Patient What is your living situation today?: I have a steady place to live Within the past 12 months, did the food you bought not last and you didn't have the money to get more?: Sometimes True Within the past 12 months, did you worry whether your food would run out before you got money to buy more?: Sometimes True Do you have trouble paying for medicines?: No Do you have trouble getting transportation to medical appointments?: No Do you have trouble paying your heating and electricity bill?: Yes Do you have trouble taking care of your child, family member or friend?: No Do you have trouble with day-to-day activities such as bathing, preparing meals, shopping, managing finances, etc.?: No Are you currently unemployed and looking for a job?: No Are you interested in more education?: No Please select the resources that you would like help with: None Currently or been in a relationship where the following occur: No concerns reported THRIVE Score: 3 SNOW-7 AMB Questionnaire SNWO-7 Date SNOW - 7 assessed: 02/11/25 Source: Developed by Drs. Valerio Bhandari, Perri Nunez, Ronak Pagan and colleagues, with an educational noelle from [employer]. Review of Systems ENT Reports no additional complaints Card Denies chest pain, Denies chest pain with activity, Denies rapid heart rate, Denies irregular heart rhythm, Denies lightheadedness and Denies dyspnea Resp Denies cough and Denies dyspnea GI Reports no additional complaints Reports no additional complaints Musc Reports no additional complaints Neuro Reports no additional complaints Endo Reports no additional complaints Aller/Immun Reports no additional complaints Physical exam (Primary Care) Vital Signs: Last Vital Signs Temp 98.2 F 03/11/25 13:29 Pulse 83 03/11/25 13:29 Resp 16 03/11/25 13:29 BP 112/70 03/11/25 13:29 Pulse Ox 97 03/11/25 13:29 BMI result Body Mass Index 31.4 Tobacco/Smoking Status: Tobacco use Status Tobacco use date assessed 03/11/25 03/11/25 13:32 Patient Tobacco Use Status Current everyday Tobacco 03/11/25 13:30 Tobacco use type Cigarette 03/11/25 13:30 e-Cigarette/Vaping Use Never Used 03/11/25 13:30 Depression Screening Interpretation: Negative Thrive Assessment: Date of Thrive Assessment Date Thrive assessed 02/06/25 03/11/25 13:30 Currently or been in a relationship where the following occur: No concerns reported Const Other: Alert oriented x3, no acute distress noted Eyes General: appearance normal, both eyes and all related structures Neck Neck: Yes full ROM, Yes no lymphadenopathy and Yes supple Resp Effort & Inspection: normal respiratory effort and able to speak in complete sentences Auscultation: clear to auscultation bilaterally Cardio Other: S1-S2 present regular rate and rhythm Neuro General: gait normal, tone normal and no focal motor deficits Extrem General: Yes full ROM, Yes no joint enlargement, Yes no clubbing, cyanosis or edema and Yes normal gait Psych Appearance: grossly normal and well kempt Mental Status: mental status grossly normal Speech and movement: Normal speech and movement present Affect: normal affect Results Reviewed Results Reviewed: Name: Penny Laboy Age/Sex: 49/F : 1975 Unit#: [id number] Attend Dr: Kristina Thomas MD Re02/09/25 Status: DEP REF [facility] Disch: SPEC : [id number] HEIDY: 02/09/25 STATUS: COMP REQ : [id number] RECD: 02/09/25-[address]: Kristina Thomas MD COMP: 02/09/25 ENTERED: 02/09/[address]: ORDERED: CBC Auto Diff Test Result Flag Reference WBC 8.6 4.8-10.8 X10*3/uL RBC 4.67 4.20-5.50 X10*6/uL HGB 14.4 12.0-16.0 g/dl HCT 44.2 37.0-47.0 % MCV 94.6 80.0-98.0 fL MCH 30.8 27.0-33.0 pg MCHC 32.6 31.0-35.0 g/dl RDW 13.6 11.0-16.0 % PLT 279 160-400 X10*3/uL MPV 10.4 9.4-12.3 fL Neut Pct Auto 66.1 45-73 % ImGran Pct Auto 0.6 H 0.0-0.4 % Lymp Pct Auto 22.4 20-40 % Barnes Pct Auto 9.4 2-11 % Eos Pct Auto 1.3 0-4 % Baso Pct Auto 0.2 0-2 % NRBC Pct Auto 0.0 0.0-0.2 /100WBC ANC Neut Abs # 5.7 2.0-8.3 x10*3/uL ImGran Abs Auto 0.05 H 0.00-0.03 X10*3/uL Lymph Abs Auto 1.9 1.2-4.9 X10*3/uL Barnes Abs Auto 0.8 0.1-1.2 X10*3/uL Eos Abs Auto 0.1 0.0-0.4 X10*3/uL Baso Abs Auto 0.0 0.0-0.2 X10*3/uL NRBC Abs Auto 0.000 0.0-0.012 X10*3/uL Name: Penny Laboy Age/Sex: 49/F : 1975 Unit#: [id number] Attend Dr: Kristina Thomas MD Re02/09/25 Status: DEP REF Location: [facility] Disch: SPEC : [id number] HEIDY: 02/09/25 STATUS: COMP REQ : [id number] RECD: 02/09/25-[address]: Kristina Thomas MD COMP: 02/09/25-1250 ENTERED: 02/09/[address] [facility] [address]: ORDERED: CMP Fast, Lipid Panel, Vitamin D 25-OH Test Result Flag Reference Sodium 139 135-145 mmol/L Potassium 4.4 3.3-5.1 mmol/L CL 109 H 96-108 mmol/L CO2 26 22-29 mmol/L Gap 8 L 12-20 BUN 18 H 9-16 mg/dL Creat 0.64 0.5-1.4 mg/dL eGFR > 60 Chronic Kidney Disease: Estimated GFR < 60 mL/min/1.73m2 Severe Kidney Disease: Estimated GFR < 15 mL/min/1.73m2 FBS 97 60-99 mg/dL CA 9.4 8.4-10.2 mg/dL Total Bili 0.4 0.0-1.0 mg/dL AST (GOT) 14 5-31 U/L ALT (GPT) 12 0-31 U/L Protein, Total 6.9 6.5-8.0 g/dL Alb 3.8 3.5-5.0 g/dL Triglyceride 113 <150 mg/dL Desirable Triglyceride: less than 150 mg/dL Borderline High Triglyceride 150-199 mg/dL High Triglyceride: 200-499 mg/dL Very High Triglyceride: greater than or equal to 5OO mg/dL Cholesterol 217 H <200 mg/dL Desirable Cholesterol: less than 200 mg/dL Borderline High Cholesterol: 200-239 mg/dL High Cholesterol: greater than 239 mg/dL LDL Calculated 143 H <100 mg/dL Desirable LDL: less than 100 mg/dL Near Optimal/Above Optimal LDL: 110-129 mg/dL Borderline High LDL: 130-159 mg/dL High LDL: 160-189 mg/dL Very High LDL: greater than or equal to 190 mg/dL HDL 52 >40 mg/dL Desirable HDL: greater than 40 mg/dL Note: This HDL assay may give artificially low results in patients with liver disease. Alk Phos 66 39-117 U/L Vitamin D 25-OH 28.1 L >30 ng/mL Health Based Reference Values* < 20 ng/mL Deficient 20-30 ng/mL Insufficient > 30 ng/mL Sufficient Coding Level of Care Code Est Pt Level 4 (89525) Diagnoses Primary hypertension I10 Vitamin D deficiency E55.9 Obesity (BMI 30.0-34.9) E66.811 Assessment & Plan Assessment & Plan (1) Primary hypertension: Code(s): I10 - Essential (primary) hypertension Category: Medical Plan: Blood pressure at goal of less than 130/80. Continue with losartan-HCTZ 50-12.5 mg taken 1 tablet once a day in a.m.. Reinforced importance of following a low sodium diet, getting regular exercise, and lowering stress levels. (2) Vitamin D deficiency: Code(s): E55.9 - Vitamin D deficiency, unspecified Plan: Prescription sent for vitamin-D 3 supplement 50867 units per capsule to take once a week for the next 3 months. Once prescription finished, to continue taking aasc-lqj-bdcvvyi vitamin-D 3 at 2000 units daily (3) Obesity (BMI 30.0-34.9): Code(s): E66.811 - Obesity, class 1 Category: Medical Plan: Started prescription for phentermine 15 mg per capsule to take once a day 2 hours after breakfast. Combined this with adherence to healthy eating habits and regular exercise. Side effects of medication discussed with patient which may include palpitations, chest pain, headache. See her back for follow-up in May 2025 Medications: New cholecalciferol (vitamin D3) 1,250 mcg PO QWEEK 3 months 13 caps 0RF E55.9 - Vitamin D deficiency, unspecified phentermine must administer 2 hours after breakfast 15 mg PO DAILY 30 caps 2RF Refilled losartan-hydrochlorothiazide 50-12.5 mg 1 tab PO DAILY 90 tabs 4RF
== END 2025-03-11 13:44 | disposition home or self-care (01) ==
LOC: HO.HMCC 13:21
PROVIDERS: PCP Internal Medicine; Visit Provider Internal Medicine
DX: I10 Essential (primary) hypertension (principal); E55.9 Vitamin D deficiency, unspecified; E66.811 Obesity, class 1; Z68.31 Body mass index [BMI] 31.0-31.9, adult

== ENCOUNTER → 2025-03-11 13:20 | Outpatient (BNVA) | payer OTHER, SELFPAY | PROVIDERS: PCP Internal Medicine; Visit Provider Internal Medicine | DX: Z13.89 Encounter for screening for other disorder (principal) ==

== ENCOUNTER 2025-06-05 13:15 | Outpatient (AMB) | payer OTHER, SELFPAY ==
[2025-06-05 14:00] VITALS: BP 100/68; PULSE 75; RESP 15; TEMP 36.9; O2SAT 99; BMI 31.9
--- NOTE | 2025-06-05 14:00 | A.OFFPC_ITS ---
Vital Signs 06/05/25 14:00 Height 5 ft 5 in Weight 192 lb BMI 31.9 BP 100/68 Blood Pressure Location Lt brachial Position Sitting Respiration 15 Pulse 75 Pulse Source Pulse Oximeter Temp 98.4 F Temp Source Oral Pulse Oximetry (%) 99 Oxygen Delivery Method Room Air Intake Visit Reasons: 3 months f/up Intake Note: Pt is here today for her 3mo. f/u Allergies Penicillins (PENICILLINS) Allergy (Intermediate, Verified 06/05/25 14:35) RASH,SWELLING,HIVES Medication List - Last Reconciled 06/05/25 by Kristina Thomas MD cholecalciferol (vitamin D3) 1,250 mcg PO QWEEK 3 months losartan-hydrochlorothiazide 50-12.5 mg 1 tab PO DAILY phentermine 15 mg PO DAILY Tobacco use date assessed: 06/05/25 Dental Screening Dental Screen Date: 06/05/25 Did you have a dental visit in the last 12 months?: No Did you have a dental problem in the last 6 months where you did not have access to dental care?: No Was dental information given to patient?: Patient has dentist HPI 3 months f/up HPI Details 49-year-old here today for follow-up on her hypertension, she is currently taking losartan HCTZ 50-12.5 mg tablet taken once a day. Has been compliant with eating a healthy diet and goes to the gym 3 to 4 times a week for exercise. Blood pressure has been within normal limits now. She is also on phentermine for the last 3 months, but still has not been able to lose weight despite adherence to healthy eating habits and regular exercise. [facility] Medical History Obesity (BMI 30.0-34.9) History of adenomatous polyp of colon Cigarette smoker one half pack a day or less Tubular adenoma of colon Primary hypertension Urinary urgency Renal calculi Irritable bowel syndrome with both constipation and diarrhea Back problem Vitamin D deficiency Lumbar back pain with radiculopathy affecting lower extremity Surgical History History of tubal ligation History of endometrial ablation History of lumbar discectomy Family History Maternal Grandmother Breast cancer Social History Housing: House Alcohol intake: never Patient Tobacco Use Status: Current everyday Tobacco user Tobacco use type: Cigarette Cigarettes Per Day: 5 e-Cigarette/Vaping Use: Never Used service: No Current occupational status: employed Cognitive needs: No Hearing needs: No Vision needs: No Female Reproductive History Menstrual Age of Menarche: 14 Questionnaire Thrive Questionnaire Date Thrive assessed: 02/06/25 I am a: Patient What is your living situation today?: I have a steady place to live Within the past 12 months, did the food you bought not last and you didn't have the money to get more?: Sometimes True Within the past 12 months, did you worry whether your food would run out before you got money to buy more?: Sometimes True Do you have trouble paying for medicines?: No Do you have trouble getting transportation to medical appointments?: No Do you have trouble paying your heating and electricity bill?: Yes Do you have trouble taking care of your child, family member or friend?: No Do you have trouble with day-to-day activities such as bathing, preparing meals, shopping, managing finances, etc.?: No Are you currently unemployed and looking for a job?: No Are you interested in more education?: No Please select the resources that you would like help with: None Currently or been in a relationship where the following occur: No concerns reported THRIVE Score: 3 SNOW-7 AMB Questionnaire SNOW-7 Date SNOW - 7 assessed: 02/11/25 Source: Developed by Drs. Valerio Bhandari, Perri Nunez, Ronak Pagan and colleagues, with an educational noelle from [employer]. Physical exam (Primary Care) Vital Signs: Last Vital Signs Temp 98.4 F 06/05/25 14:00 Pulse 75 06/05/25 14:00 Resp 15 06/05/25 14:00 BP 100/68 06/05/25 14:00 Pulse Ox 99 06/05/25 14:00 Oxygen Delivery Method Room Air 06/05/25 14:00 BMI result Body Mass Index 31.9 Tobacco/Smoking Status: Tobacco use Status Tobacco use date assessed 06/05/25 06/05/25 14:01 Patient Tobacco Use Status Current everyday Tobacco 06/05/25 14:01 Tobacco use type Cigarette 06/05/25 14:01 e-Cigarette/Vaping Use Never Used 06/05/25 14:01 Thrive Assessment: Date of Thrive Assessment Date Thrive assessed 02/06/25 06/05/25 14:01 Currently or been in a relationship where the following occur: No concerns reported Const Other: Alert oriented x3, no acute distress noted Neck Neck: Yes full ROM, Yes no lymphadenopathy and Yes supple Resp Effort & Inspection: normal respiratory effort and able to speak in complete sentences Auscultation: clear to auscultation bilaterally Cardio Other: S1-S2 present regular rate and rhythm GI Palpation (GI): Soft to palpation, nontender, no guarding and no masses Auscultation: normal bowel sounds Neuro General: gait normal, tone normal and no focal motor deficits Extrem General: Yes full ROM, Yes no joint enlargement, Yes no clubbing, cyanosis or edema and Yes normal gait Psych Appearance: grossly normal and well kempt Mental Status: mental status grossly normal Speech and movement: Normal speech and movement present Affect: normal affect Coding Level of Care Code Est Pt Level 4 (93490) Diagnoses Primary hypertension I10 Obesity (BMI 30.0-34.9) E66.811 Assessment & Plan Assessment & Plan (1) Primary hypertension: Code(s): I10 - Essential (primary) hypertension Category: Medical Plan: Blood pressure now within normal limits, continued on losartan-HCTZ 50-12.5 mg taken 1 tablet once a day in a.m., combined this with adherence to following a low-salt low-cholesterol diet and getting regular exercise (2) Obesity (BMI 30.0-34.9): Code(s): E66.811 - Obesity, class 1 Category: Medical Plan: Failed to lose any weight on phentermine, will switch to Zepbound 2.5 mg per injection administered subcutaneously once a week. Discussed possible side effects of medication which may include nausea, abdominal cramping, bloating, alteration in bowel habits, abdominal pain. Eat a bland diet on the day that she administers the medication. Avoid alcoholic beverage. Continue with adherence to healthy eating habits and regular exercise. Will see her back for follow-up in 3 months. Orders: Orders Alanine Aminotransferase 08/21/25 E66.811 - Obesity, class 1, I10 - Essential (primary) hypertension Basic Metabolic Panel Fasting 08/21/25 E66.811 - Obesity, class 1, I10 - Essential (primary) hypertension Lipid Panel 08/21/25 E66.811 - Obesity, class 1, I10 - Essential (primary) hypertension Aspartate Amino Transferase 08/21/25 E66.811 - Obesity, class 1, I10 - Essential (primary) hypertension Medications: New Zepbound (tirzepatide (weight loss)) 2.5 mg (0.5 mL) subcut QWEEK 2 mL 3RF NS E66.811 - Obesity, class 1, I10 - Essential (primary) hypertension Discontinued phentermine must administer 2 hours after breakfast Discontinued Reason: Doctor's Order 15 mg PO DAILY 30 caps 2RF
== END 2025-06-05 14:32 | disposition home or self-care (01) ==
LOC: HO.HMCC 13:16
PROVIDERS: PCP Internal Medicine; Visit Provider Internal Medicine
DX: I10 Essential (primary) hypertension (principal); E66.811 Obesity, class 1; Z68.31 Body mass index [BMI] 31.0-31.9, adult

== ENCOUNTER 2025-09-10 11:11 | Outpatient (AMB) | payer OTHER, SELFPAY ==
[2025-09-10 11:33] VITALS: BP 118/70; PULSE 77; RESP 16; TEMP 36.7; O2SAT 98; BMI 31.4
--- NOTE | 2025-09-10 11:33 | MHC.PC.OV ---
Vital Signs 09/10/25 11:33 Height 5 ft 5 in Weight 189 lb BMI 31.4 BP 118/70 Blood Pressure Location Lt brachial Position Sitting Respiration 16 Pulse 77 Pulse Source Pulse Oximeter Temp 98.1 F Temp Source Oral Pulse Oximetry (%) 98 Oxygen Delivery Method Room Air Intake Visit Reasons: 3 months Follow-up lipids, weight, hypertension Allergies Penicillins (PENICILLINS) Allergy (Intermediate, Verified 09/10/25 11:40) RASH,SWELLING,HIVES Medication List - Last Reconciled 09/10/25 by Kristina Thomas MD cholecalciferol (vitamin D3) 1,250 mcg PO QWEEK 3 months losartan-hydrochlorothiazide 50-12.5 mg 1 tab PO DAILY Tobacco use date assessed: 06/05/25 Dental Screening Dental Screen Date: 06/05/25 HPI 3 months Follow-up lipids, weight, hypertension HPI Details 50-year-old lady with hypertension, obesity, active cigarette smoker, here today for her follow-up. She has been compliant with taking her losartan HCTZ 50-12.5 mg taken once a day in a.m., although she admits there are does she forgets taking the medication. Blood pressure has been stable and controlled on present treatment. Denies any chest pain or headaches unless she misses her dose, no shortness a breath or palpitations reported. Forgot to get her fasting labs done prior to appointment. She is also interested in quitting smoking, has tried nicotine patches in the past which has helped but due to stress started smoking again. She also has tried Chantix in the past, but had problems with weird dreams medicine. Would like to try it again. Coronary currently smokes less than half a pack a day [facility] Medical History Obesity (BMI 30.0-34.9) History of adenomatous polyp of colon Cigarette smoker one half pack a day or less Tubular adenoma of colon Primary hypertension Urinary urgency Renal calculi Irritable bowel syndrome with both constipation and diarrhea Back problem Vitamin D deficiency Lumbar back pain with radiculopathy affecting lower extremity Surgical History History of tubal ligation History of endometrial ablation History of lumbar discectomy Family History Maternal Grandmother Breast cancer Social History Housing: House Alcohol intake: never Patient Tobacco Use Status: Current everyday Tobacco user Tobacco use type: Cigarette Cigarettes Per Day: 5 e-Cigarette/Vaping Use: Never Used service: No Current occupational status: employed Cognitive needs: No Hearing needs: No Vision needs: No Female Reproductive History Menstrual Age of Menarche: 14 Questionnaire Thrive Questionnaire Date Thrive assessed: 02/06/25 I am a: Patient What is your living situation today?: I have a steady place to live Within the past 12 months, did the food you bought not last and you didn't have the money to get more?: Sometimes True Within the past 12 months, did you worry whether your food would run out before you got money to buy more?: Sometimes True Do you have trouble paying for medicines?: No Do you have trouble getting transportation to medical appointments?: No Do you have trouble paying your heating and electricity bill?: Yes Do you have trouble taking care of your child, family member or friend?: No Do you have trouble with day-to-day activities such as bathing, preparing meals, shopping, managing finances, etc.?: No Are you currently unemployed and looking for a job?: No Are you interested in more education?: No Please select the resources that you would like help with: None Currently or been in a relationship where the following occur: No concerns reported THRIVE Score: 3 SNOW-7 AMB Questionnaire SNOW-7 Date SNOW - 7 assessed: 02/11/25 Source: Developed by Drs. Valerio Bhandari, Perri Nunez, Ronak Pagan and colleagues, with an educational noelle from [employer]. Review of Systems ENT Reports no additional complaints Card Denies chest pain, Denies chest pain with activity, Denies rapid heart rate, Denies irregular heart rhythm, Denies lightheadedness and Denies dyspnea Resp Denies cough and Denies dyspnea GI Reports no additional complaints Reports no additional complaints Musc Reports no additional complaints Neuro Reports no additional complaints Psych Reports no additional complaints Endo Reports no additional complaints Aller/Immun Reports no additional complaints Physical exam (Primary Care) Vital Signs: Last Vital Signs Temp 98.1 F 10/21/25 11:33 Pulse 77 09/10/25 11:33 Resp 16 09/10/25 11:33 BP 118/70 09/10/25 11:33 Pulse Ox 98 09/10/25 11:33 Oxygen Delivery Method Room Air 09/10/25 11:33 BMI result Body Mass Index 31.4 Tobacco/Smoking Status: Tobacco use Status Tobacco use date assessed 06/05/25 09/10/25 11:37 Patient Tobacco Use Status Current everyday Tobacco 09/10/25 11:37 Tobacco use type Cigarette 09/10/25 11:37 e-Cigarette/Vaping Use Never Used 09/10/25 11:37 Thrive Assessment: Date of Thrive Assessment Date Thrive assessed 02/06/25 09/10/25 11:37 Currently or been in a relationship where the following occur: No concerns reported Const Other: Alert oriented x3, no acute distress noted Neck Neck: Yes full ROM, Yes no lymphadenopathy and Yes supple Resp Effort & Inspection: normal respiratory effort and able to speak in complete sentences Auscultation: clear to auscultation bilaterally Cardio Other: S1-S2 present regular rate and rhythm Neuro General: gait normal, tone normal and no focal motor deficits Extrem General: Yes full ROM, Yes no joint enlargement, Yes no clubbing, cyanosis or edema and Yes normal gait Psych Appearance: grossly normal and well kempt Mental Status: mental status grossly normal Speech and movement: Normal speech and movement present Affect: normal affect Coding Level of Care Code Est Pt Level 4 (18430) Diagnoses Primary hypertension I10 Cigarette smoker motivated to quit F17.210 Assessment & Plan Assessment & Plan (1) Primary hypertension: Code(s): I10 - Essential (primary) hypertension Category: Medical Plan: Blood pressure stable and controlled on losartan-HCTZ, will continue on same dose. Advised to adhere to a low-salt diet and getting regular exercise, goes to the gym 3 to 4 times a week and walks regularly. (2) Cigarette smoker motivated to quit: Code(s): F17.210 - Nicotine dependence, cigarettes, uncomplicated Plan: SmokingDiscussed options for smoking cessation with medications. Pt wishes to try Chantix again, prescription sent for varenicline starter pack, advised to take it with a glass of water and a meal, instructions on how to take medication, to stop if she develops any severe mood swings or suicidal ideations. Will see her back for follow-up via telehealth 4 weeks after starting Chantix Medications: New varenicline tartrate PO PER PKG DIR 53 ea 0RF
--- OUTSIDE RECORDS SUMMARY | 2025-09-10 14:16 | XMS_ITS | Clinical Summary ---
Author Organization [facility] Address [address] [employer] [facility] [address] [place] [phone] Phone Care Team Providers Care M1 Armor Crewman Name Role Phone Kristina Thomas MD Primary Care Provider Allergies Active Allergy Reactions Criticality Noted Date Comments Penicillins Rash Low 01/09/2018 Medications HYDROcodone-dylon taminophen (NORCO) 5-325 mg per tablet Take 1 tablet by mouth every 6 (six) hours as needed for pain (specific location in comments). Pt. may request partial fill 10 tablet 8 Active Additional Information Patient not taking.Reported on 02/21/2022 ibuprofen (ADVIL,MOTRIN) 800 MG tablet as needed. Activ e morphine (MSIR) 15 MG tablet Take 1 tablet (15 mg total) by mouth every 4 (four) hours as needed for pain (specific location in comments). Pt. may request partial fill 15 tablet 8 Active Additional Information Patient not taking.Reported on 02/21/2022 traMADoL (ULTRAM) 50 mg tablet Take 1 tablet (50 mg total) by mouth every 8 (eight) hours as needed for pain (specific location in comments). 10 tablet 2 Active cefpodoxime (VANTIN) 100 MG tablet Take 1 tablet (100 mg total) by mouth 2 (two) times a day. 10 tablet 2 Active naproxen (NAPROSYN) 500 MG tablet Take 1 tablet (500 mg total) by mouth 2 (two) times a day with meals. 10 tablet 2 Active ondansetron (ZOFRAN) 4 MG tablet Take 1 tablet (4 mg total) by mouth every 8 (eight) hours as needed for nausea. 7 tablet 2 Active tamsulosin (FLOMAX) 0.4 mg Cap Take 1 capsule (0.4 mg total) by mouth daily. 4 capsule 2 Active Active Problems No known active problems Social History Tobacco Use Types Packs/Day Years Used Date Smoking Tobacco: Every Day Smokeless Tobacco: Former Alcohol Use Standard Drinks/Week Comments No 0 (1 standard drink = 0.6 oz pur e alcohol) Education Answer Date Recorded Are you interested in more education? Not on mat e 03/18/2023 Are you concerned about learning? Not on file 03/18/2023 No 03/18/2023 No 03/18/2023 Digital Access Answer Date Recorded No 04/16/2023 No 04/16/2023 Reliable internet access at home? Not on file 04/16/2023 Device with a working camera? Not on file Comments Unknown Sex and Gender Information Value Date Recorded Sex Assigned at Female 01/09/2018 9:32 AM EST Legal Sex Female 10:31 PM EDT Gender Identity Female 01/09/2018 9:32 AM EST Sexual Orientation Straight 01/09/2018 9: 32 AM EST Last Filed Vital Signs Vital Sign Reading Time Taken Comments Blood Pressure 136/84 02/11/2024 4:52 PM EDT Pulse 60 02/11/2024 4:52 PM EDT Temperature 36.6 C (97.9 F) 02/11/2024 4:52 PM EDT Respiratory Rate 16 02/11/2024 4:52 PM EDT Oxygen Saturation 100% 02/11/2024 4:52 PM EDT Inhaled Oxygen Concentration - - Weight 83.9 kg (185 lb) 09/11/2022 1:19 PM EDT Height 165.1 cm (5' 5 ) 09/11/2022 1:19 PM EDT Body Mass Index 30.79 09/11/2022 1:19 PM EDT Plan of Treatment Health Maintenance Due Date Last Done Comments Adult Td,Tdap Booster 1975 LIPID PANEL 1974 DEPRESSION SCREENING 1986 SMOKING Hx and SMOKELESS TOBACCO SCREENING 1987 HEPATITIS C SCREENING 1992 HIV ONE-TIME SCREENING (18-6 5 YEARS) 1992 PNEUMOCOCCAL VACCINES (50+ years) (1 of 2 - PCV) 1993 PAP SMEAR 1995 MAMMOGRAM 2014 COLOGUARD 2019 COLONOSCOPY 2019 COLORECTAL CANCER SCREENING 2019 FIT TEST 2019 FOBT 2019 SIGMOIDOSCOPY 2019 VIRTUAL COLONOSCOPY 2019 ZOSTER VACCINES (1 of 2) 2024 INFLUENZA VACCINE (#1) 2025 COVID-19 VACCINE ( - 2024-2 6 season) 2025 12/12/2021, 03/04/2021, 02/07/2021 SCREENING FOR DIABETES 09/11/2025 09/11/2022 RSV VACCINE (1 - 1-dose 75+ series) 2049 HEPATITIS A VACCINES Aged Out No long er eligible based on patient's age to complete this topic HIB VACCINES Aged Out No longer eligi ble based on patient's age to complete this topic MENINGOCOCCAL VACCINES (ACWY) Aged Out No longer eligible based on patient's age to complete this topic MENINGOCOCCAL VACCINES (B) Aged Out N o longer eligible based on patient's age to complete this topic Medical Devices Not on file Insurance HMO O O O O Member Subscriber Plan / Payer (Ef fective 2022-Present) Name:Michaela Benitez A Relation to Subscriber:Spouse Name:ELI,MICHAELA Date of :1974 (Home) Address: [address] [place] [address] Payer ID:Not on file Type:O Address: [place] [id number] O O O O Care Teams M1 Armor Crewman Relationship Specialty Start Date End Date Kristina Thomas MD [facility] [address] PCP - General Internal Medicine 02/21/22 Additional Source Comments The information contained in this document represents components of the legal health record. It is not the complete legal health record.[facility]
--- OUTSIDE RECORDS SUMMARY | 2025-09-10 14:16 | XMS_ITS | Encounter Summary ---
Author Organization [facility] Address [address] [employer] [facility] [address] [place] [phone] Phone Care Team Providers Care Piano Technician Name Role Phone Kristina Thomas MD Primary Care Provider Kristina Thomas MD Primary Care Provider Encounter Details Date Type Department Care Team (Late st Contact Info) Description 02/05/2018 Procedure Pass [facility], Ct Scan - [facility] [address] [place] [address] Social History Tobacco Use Types Packs/Day Years Used Date Smoking Tobacco: Former Smokeless Tobacco: Former Alcohol Use Standard Drinks/Week Comments No 0 (1 standard drink = 0.6 oz pur e alcohol) Comments Unknown Sex and Gender Information Value Date Recorded Sex Assigned at Female 01/09/2018 9:32 AM EST Legal Sex Female 10:31 PM EDT Gender Identity Female 01/09/2018 9:32 AM EST Sexual Orientation Straight 01/09/2018 9: 32 AM EST documented as of this encounter Plan of Treatment Not on file documented as of this encounter Visit Diagnoses Not on filedocumented in this encounter Additional Health Concerns Infection Onset Date Last Indicated Resolved Time CoV-Risk 02/21/2022 02/21/2022 03/04/2022 1:24 AM EDT documented as of this encounter Care Teams Piano Technician Relationship Specialty Start Date End Date Kristina Thomas MD [address] [facility] [place] [address] PCP - General Internal Medicine 01/09/18 02/20/22 Kristina Thomas MD [address] [place] [address] [place] [address] PCP - General Internal Medicine 02/21/22 documented as of this encounter Additional Source Comments The information contained in this document represents components of the legal health record. It is not the complete legal health record.[facility]
--- OUTSIDE RECORDS SUMMARY | 2025-09-10 14:16 | XMS_ITS | Encounter Summary ---
Author Organization [facility] Address [address] [employer] [facility] [address] [place] [phone] Phone Care Team Providers Care Maintenance Specialist Name Role Phone Kristina Thomas MD Primary Care Provider Encounter Details Date Type Department Care Team (Late st Contact Info) Description 09/11/2022 Procedure Pass [facility], Ct Scan - [facility] [address] [place] [address] Social History Tobacco Use Types Packs/Day Years [...] AM EST documented as of this encounter Functional Status * Calculated C-SSRS Risk Score (Lifetime/Recent) Answer Date of Assessment Author No Risk Indicated 09/11/2022 1:20 PM EDT Estefania Randle CNP * Ogle Suicide Severity Rating Scale (Screener/Recent Self-Report) Question Answer Date of Assessment Author 1. Wish to be (Past 1 Month) No 09/11/2022 1:20 PM EDT Estefania Randle CNP 2. Non-Specific Active Suicidal Thoughts (Past 1 Month) No 09/11/2022 1:20 PM EDT Estefania Randle CNP 6. Suicidal Behavior (Lifetime) No 09/11/2022 1:20 PM EDT Estefania Randle CNP documented as of this encounter Plan of Treatment Not on file documented as of this encounter Visit Diagnoses Not on filedocumented in this encounter Care Teams Maintenance Specialist Relationship Specialty Start Date End Date Kristina Thomas MD [facility] [place] [address] PCP - General Internal Medicine 02/21/22 documented as of this encounter Additional Source Comments The information contained in this document represents components of the legal health record. It is not the complete legal health record.[facility]
== END 2025-09-10 13:28 | disposition home or self-care (01) ==
LOC: HO.HMCC 11:12
PROVIDERS: PCP Internal Medicine; Visit Provider Internal Medicine
DX: I10 Essential (primary) hypertension (principal); F17.210 Nicotine dependence, cigarettes, uncomplicated

== ENCOUNTER 2025-10-07 06:14 | Outpatient (REF) | payer OTHER, SELFPAY ==
--- OUTSIDE RECORDS SUMMARY | 2025-10-07 06:17 | XMS_ITS | Encounter Summary ---
Author Organization [facility] Address [address] [employer] [facility] [address] [place] [address] Phone Care Team Providers Care Director Experimental Medicine Name Role Phone Kristina Thomas MD Primary Care Provider Encounter Details Date Type Department Care Team (Late st Contact Info) Description 09/11/2022 Procedure Pass [facility], Ct Scan - [facility] [address] [place] [address] Social History Tobacco Use Types Packs/Day Years [...] 1:20 PM EDT Estefania Randle CNP * Julian Suicide Severity Rating Scale (Screener/Recent Self-Report) Question [...] on filedocumented in this encounter Care Teams Director Experimental Medicine Relationship Specialty Start Date End Date Kristina Thomas MD [facility] [place] [address] PCP - General Internal Medicine 02/21/22 documented as of this encounter Additional Source Comments The information contained in this document represents components of the legal health record. It is not the complete legal health record.[facility]
--- OUTSIDE RECORDS SUMMARY | 2025-10-07 06:17 | XMS_ITS | Encounter Summary ---
Author Organization [facility] Address [address] [facility] [address] [place] [phone] Phone Care Team Providers Care Stylist Assistant Name Role Phone Kristina Thomas MD Primary Care Provider Kristina Thomas MD Primary Care Provider Encounter Details Date Type Department Care Team (Late st Contact Info) Description 02/05/2018 Procedure Pass [facility], Ct Scan - [facility] [address] [place] [address] Social History Tobacco Use Types Packs/Day Years [...] documented as of this encounter Care Teams Stylist Assistant Relationship Specialty Start Date End Date Kristina Thomas MD [address] [facility] [place] [address] PCP - General Internal Medicine 01/09/18 02/20/22 Kristina Thomas MD [address] [place] [address] [place] [address] PCP - General Internal Medicine 02/21/22 documented as of this encounter Additional Source Comments The information contained in this document represents components of the legal health record. It is not the complete legal health record.[facility]
--- OUTSIDE RECORDS SUMMARY | 2025-10-07 06:17 | XMS_ITS | Clinical Summary ---
Author Organization [facility] Address [address] [employer] [facility] [address] [place] [phone] Phone Care Team Providers Care Rail Car Mechanic Name Role Phone Kristina Thomas MD Primary [...] 2024 INFLUENZA VACCINE (#1) 2025 COVID-19 VACCINE (4 - 2024-2 6 season) 2025 12/12/2021, 03/04/2021, 02/07/2021 RSV VACCINE (1 - 1-dose 75+ series) 2049 HEPATITIS A VACCINES Aged Out No long er eligible based on patient's age to complete this topic HIB VACCINES Aged Out No longer eligi ble based on patient's age to complete this topic IPV VACCINES Aged Out No longer eligi ble [...] 2022-Present) Name:Michaela Benitez A Relation to Subscriber:Spouse Name:MICHAELA BENITEZ Date of :1974 (Home) Address: [address] [place] [address] Payer ID:Not on file Type:O Address: [place] [id number] O O O O Care Teams Rail Car Mechanic Relationship Specialty Start Date End Date Kristina Thomas MD [facility] [address] PCP - General Internal Medicine 02/21/22 Additional Source Comments The information contained in this document represents components of the legal health record. It is not the complete legal health record.[facility]
[2025-10-07 10:59] LABS: Alanine Aminotransferase 14 U/L (0-31); Anion Gap 13 (12-20); Aspartate Amino Transferase 19 U/L (5-31); Blood Urea Nitrogen 16 mg/dL (9-16); Calcium 9.6 mg/dL (8.4-10.2); Carbon Dioxide 26 mmol/L (22-29); Chloride 108 mmol/L (96-108); Cholesterol 233 mg/dL (<200); Estimated Glomerular Filt Rate > 60; HDL Cholesterol 45 mg/dL (>40); Potassium 3.7 mmol/L (3.3-5.1); Sodium 143 mmol/L (135-145); Triglycerides 192 mg/dL (<150)
== END 2025-10-07 06:15 | disposition home or self-care (01) ==
LOC: HO.HMGCLDS 06:14
PROVIDERS: PCP Internal Medicine; Visit Provider Internal Medicine
DX: Z01.84 Encounter for antibody response examination (principal); I10 Essential (primary) hypertension; E66.811 Obesity, class 1
CPT/HCPCS: 36415; 80048; 80061; 84450; 84460; 86787

== ENCOUNTER 2025-10-08 15:45 | Outpatient (AMB) | payer OTHER, SELFPAY ==
--- NOTE | 2025-10-08 15:42 | MHC.PC.OV ---
Intake Visit Reasons: TH 4 week follow up per AE Intake Note: Pt is having a telehealth visit for f/u lab and smoking cessation Printed Circuit Board Reworker Required: No Allergies Penicillins (PENICILLINS) Allergy (Intermediate, Verified 10/08/25 15:49) RASH,SWELLING,HIVES Medication List - Last Reconciled 10/08/25 by Kristina Thomas MD cholecalciferol (vitamin D3) 1,250 mcg PO QWEEK 3 months losartan-hydrochlorothiazide 50-12.5 mg 1 tab PO DAILY varenicline tartrate PO PER PKG DIR Tobacco use date assessed: 10/08/25 Dental Screening Dental Screen Date: 10/08/25 Did you have a dental visit in the last 12 months?: No Did you have a dental problem in the last 6 months where you did not have access to dental care?: No Was dental information given to patient?: Patient has dentist HPI HPI Comments History of Present Illness Details Chief Complaint The patient presents for a follow-up visit to discuss her progress with smoking cessation on Chantix and to review recent lab results. History of Present Illness The patient is a 50-year-old female presenting for a follow-up on smoking cessation with Chantix and review of lab results. She is currently taking high-dose vitamin D once a week and Chantix 1 mg 1 tablet once a day in a.m. The patient reports that while taking Chantix, she has reduced her smoking from approximately double her current amount to 3-4 cigarettes per day. She notes she still has cravings, particularly in the morning, but they are reduced overall. She has a long history of smoking since her teenage years, with a prior period of cessation when she quit cold turkey after learning she was . She experienced some nausea initially with Chantix but reports no other side effects like dizziness. Recent lab results show an increase in her triglycerides from 113 to 192 and LDL cholesterol from 143 to 150. Her blood sugar also increased from 97 to 121. The patient has been having episodes of, lightheadedness, but no chest pain, shortness of breath or nausea, which she does not attribute to her blood pressure as it remains well-controlled at home. Regarding her diet, she reports eating once a day, with a preference for pasta and bread. She has recently increased her intake of tea with creamer do 2-3 cups daily, and typically prepares pasta with butter. She denies being a large consumer of sweets or baked goods. [facility] Medical History (Updated 10/08/25 @ 16:17 by Kristina Thomas MD) Tobacco use disorder Impaired fasting glucose Mixed dyslipidemia Obesity (BMI 30.0-34.9) History of adenomatous polyp of colon Cigarette smoker one half pack a day or less Primary hypertension Renal calculi Irritable bowel syndrome with both constipation and diarrhea Vitamin D deficiency Lumbar back pain with radiculopathy affecting lower extremity Surgical History (Updated 10/08/25 @ 16:16 by Kristnia Thomas MD) History of tubal ligation History of endometrial ablation History of lumbar discectomy Family History Maternal Grandmother Breast cancer Social History Housing: House Alcohol intake: never Patient Tobacco Use Status: Current everyday Tobacco user Tobacco use type: Cigarette Cigarettes Per Day: 3 e-Cigarette/Vaping Use: Never Used service: No Current occupational status: employed Cognitive needs: No Hearing needs: No Vision needs: No Female Reproductive History Menstrual Age of Menarche: 14 Questionnaire PHQ-9 Over the last 2 weeks, how often have you been bothered by any of the following problems? 1. Little interest or pleasure in doing things: not at all 2. Feeling down, depressed, or hopeless: not at all 3. Trouble falling or staying asleep, or sleeping too much: not at all 4. Feeling tired or having little energy: not at all 5. Poor appetite or overeating: not at all 6. Feeling bad about yourself - or that you are a failure or have let yourself or your family down: not at all 7. Trouble concentrating on things, such as reading the newspaper or watching television: not at all 8. Moving or speaking so slowly that other people could have noticed. Or the opposite - being so fidgety or restless that you have been moving around a lot more than usual: not at all 9. Thoughts that you would be better off or of hurting yourself in some way: not at all Total score: 0 Depression Screening Interpretation: Negative Depression Screening Done: Yes Source: Developed by Drs. Valerio Bhandari, Ronak Pool and colleagues, with an educational noelle from [employer]. Thrive Questionnaire Date Thrive assessed: 02/06/25 I am a: Patient What is your living situation today?: I have a steady place to live Within the past 12 months, did the food you bought not last and you didn't have the money to get more?: Sometimes True Within the past 12 months, did you worry whether your food would run out before you got money to buy more?: Sometimes True Do you have trouble paying for medicines?: No Do you have trouble getting transportation to medical appointments?: No Do you have trouble paying your heating and electricity bill?: Yes Do you have trouble taking care of your child, family member or friend?: No Do you have trouble with day-to-day activities such as bathing, preparing meals, shopping, managing finances, etc.?: No Are you currently unemployed and looking for a job?: No Are you interested in more education?: No Please select the resources that you would like help with: None Currently or been in a relationship where the following occur: No concerns reported THRIVE Score: 3 SNOW-7 AMB Questionnaire SNOW-7 Date SONW - 7 assessed: 02/11/25 Feeling nervous, anxious, or on edge: 0 = Not at all Not being able to stop or control worryin = Not at all Worrying too much about different things: 0 = Not at all Trouble relaxin = Not at all Being so restless that it is hard to sit still: 0 = Not at all Becoming easily annoyed or irritable: 0 = Not at all Feeling afraid as if something awful might happen: 0 = Not at all Total SNOW-7 score (0-4 normal; 5-9 mild; 10-14 moderate; 15-21 severe): 0 Source: Developed by Drs. Valerio Bhandari, Ronak Pool and colleagues, with an educational noelle from [employer]. Review of Systems Narrative Review of Systems - Constitutional: As per HPI. - Neurological: As per HPI - Gastrointestinal: Reports initial nausea from Chantix, which has since resolved. - All other systems reviewed and are negative. Physical exam (Primary Care) Tobacco/Smoking Status: Tobacco use Status Tobacco use date assessed 10/08/25 10/08/25 15:44 Patient Tobacco Use Status Current everyday Tobacco 10/08/25 15:44 Tobacco use type Cigarette 10/08/25 15:44 e-Cigarette/Vaping Use Never Used 10/08/25 15:44 PHQ-9: PHQ-9 Score PHQ-9: Total score 0 10/08/25 15:50 Depression Screening Interpretation: Negative Thrive Assessment: Date of Thrive Assessment Date Thrive assessed 02/06/25 10/08/25 15:44 Currently or been in a relationship where the following occur: No concerns reported Narrative Physical Exam - This was a telehealth visit; no physical exam was performed. Telehealth Telehealth Telehealth Platform: [employer] Location of provider rendering services: practice address Location of patient: address on file Patient Identification confirmed using: Name, : Yes Telehealth method: video Patient verbally consented to treatment: Yes Patient verbally consented to billing insurance company: Yes Patient informed of any privacy concerns related to visit: Yes Minutes spent on Phone/Video with Pt.: 15 Results Reviewed Results Reviewed: Name: Penny Laboy Age/Sex: 50/F : 1975 Unit#: [id number] Attend Dr: Kristina Thomas MD Re10/07/25 Status: DEP [facility] Disch: SPEC : [id number] HEIDY: 10/07/25 STATUS: COMP REQ : [id number] RECD: 10/07/[address]: Kristina Thomas MD COMP: 10/07/259 ENTERED: 10/07/[address]: ORDERED: Met Prof Fast, AST, ALT, Lipid Panel Test Result Flag Reference Sodium 143 135-145 mmol/L Potassium 3.7 3.3-5.1 mmol/L CL 108 96-108 mmol/L CO2 26 22-29 mmol/L Gap 13 12-20 BUN 16 9-16 mg/dL Creat 0.72 0.5-1.4 mg/dL eGFR > 60 Chronic Kidney Disease: Estimated GFR < 60 mL/min/1.73m2 Severe Kidney Disease: Estimated GFR < 15 mL/min/1.73m2 FBS 121 H 60-99 mg/dL A fasting glucose from 100-125 mg/dl is considered impaired (pre-diabetes). CA 9.6 8.4-10.2 mg/dL AST (GOT) 19 5-31 U/L ALT (GPT) 14 0-31 U/L Triglyceride 192 H <150 mg/dL Desirable Triglyceride: less than 150 mg/dL Borderline High Triglyceride 150-199 mg/dL High Triglyceride: 200-499 mg/dL Very High Triglyceride: greater than or equal to 5OO mg/dL Cholesterol 233 H <200 mg/dL Desirable Cholesterol: less than 200 mg/dL Borderline High Cholesterol: 200-239 mg/dL High Cholesterol: greater than 239 mg/dL LDL Calculated 150 H <100 mg/dL Desirable LDL: less than 100 mg/dL Near Optimal/Above Optimal LDL: 110-129 mg/dL Borderline High LDL: 130-159 mg/dL High LDL: 160-189 mg/dL Very High LDL: greater than or equal to 190 mg/dL HDL 45 >40 mg/dL Desirable HDL: greater than 40 mg/dL Note: This HDL assay may give artificially low results in patients with liver disease. Coding Level of Care Code Tele Est Pt Level 4 (91619) Diagnoses Tobacco use disorder F17.200 Mixed dyslipidemia E78.2 Impaired fasting glucose R73.01 Assessment & Plan Assessment & Plan (1) Tobacco use disorder: Code(s): F17.200 - Nicotine dependence, unspecified, uncomplicated Category: Medical (2) Mixed dyslipidemia: Code(s): E78.2 - Mixed hyperlipidemia Category: Medical (3) Impaired fasting glucose: Code(s): R73.01 - Impaired fasting glucose Category: Medical Plan Assessment and Plan 1. Tobacco use disorder The patient is responding well to Chantix, having reduced her daily cigarette consumption significantly from her baseline. Her main challenge is morning cravings. The plan is to continue Chantix, and a 2-month prescription with one refill will be sent. She was advised to continue taking 1 mg Chantix in the morning and try taking half a tablet in the evening to curb morning cravings, with the option to increase her dose to to one tablet twice daily 2. Hypercholesterolemia and Hyperglycemia The patient's recent lab work showed an elevation in triglycerides to 192, LDL cholesterol to 150, and fasting glucose to 121. The increase in triglycerides is likely related to an increased consumption of creamer in her tea. The patient also reports symptoms of lightheadedness, which may be secondary to hyperglycemia. The plan is to manage this with dietary modifications, including reducing creamer intake and substituting butter with olive oil on her pasta. Reinforced importance of doing regular moderate intensity exercise at least 15 minutes daily. No lipid-lowering or glucose-lowering medications are indicated at this time. Her labs will be rechecked prior to her next physical exam. 3. Follow-up The patient is scheduled for a physical exam on February 02 at 1:00 PM. A lab order will be placed for her to complete blood work before this visit. She was advised on how to get assistance with setting up her patient portal for easier communication Patient was informed and verbally consented to the use of an ambient scribe for clinic note documentation during this visit.
== END 2025-10-08 16:07 | disposition home or self-care (01) ==
LOC: HO.HMCC 15:45
PROVIDERS: PCP Internal Medicine; Visit Provider Internal Medicine
DX: F17.200 Nicotine dependence, unspecified, uncomplicated (principal); E78.2 Mixed hyperlipidemia; R73.01 Impaired fasting glucose